=== PATIENT | female | born 1970 | race Hispanic/Latino ===

== ENCOUNTER 2016-11-13 10:38 | Emergency (ER) | payer OTHER ==
[2016-11-13 13:39] LABS: Basophils % (Auto) 0.3 % (0.0-1.8); Eosinophils % (Auto) 0.7 % (0.0-4.3); Hematocrit 36.7 % (35.5-45.6); Hemoglobin 12.4 gm/dl (11.8-15.2); Mean Corpuscular HGB Conc 34 % (32-34); Mean Corpuscular Hemoglobin 29 pg (28-32); Mean Corpuscular Volume 85 fl (84-94); Platelet Count 360 K/mm3 (140-440); Red Blood Count 4.33 M/mm3 (3.65-5.03); Red Cell Distribution Width 17.3 % (13.2-15.2); White Blood Count 7.5 K/mm3 (4.5-11.0)
[2016-11-13 13:44] LABS: Urine Drugs of Abuse Note Disclamer
[2016-11-13 13:47] LABS: Anion Gap 23 mmol/L; BUN/Creatinine Ratio 25.55; Blood Urea Nitrogen 23 mg/dL (9-20); Calcium 8.9 mg/dL (8.4-10.2); Carbon Dioxide 23 mmol/L (22-30); Chloride 93.2 mmol/L (98-107); Glucose 127 mg/dL (75-100); Potassium 4.1 mmol/L (3.6-5.0); Sodium 135 mmol/L (137-145)
[2016-11-13 14:20] LABS: Bacteria,Urine 3+ /HPF (Negative); Bilirubin,Urine NEG (Negative); Blood,Urine NEG (Negative); Ketones,Urine 20 mg/dL (Negative); Leukocyte Esterase,Urine LG (Negative); Mucus,Urine FEW /HPF; Nitrite,Urine NEG (Negative); Protein,Urine <15 mg/dL mg/dL (Negative); Urobilinogen,Urine < 2.0 mg/dL (<2.0)
--- NOTE | 2016-11-13 14:53 | Emergency Department Report ---
HPI - General Chief Complaint: Nausea/Vomiting/Diarrhea Time Seen by Provider: 11/13/16 14:27 - HPI HPI: This is a 46-year-old female presents to the emergency department with what she says is now some dizziness, feeling overheated and shakes. The patient was brought in many hours ago by [facility] but then became slightly belligerent to triage and said she was leaving and eloped. She recently came back with these current complaints saying that she just wants to get some rest. There was some talk about hallucinations occurring last night but currently she denies any auditory or visual hallucinations or any suicidal or homicidal ideations. She does have a history of depression and schizophrenia. She denies any current past medical history. She does admit to drinking some alcohol last night but denies alcoholism. She does admit to using some "street drugs" but says that she has not done it in the past 1-2 days. She be noted that later on on reassessment the patient says that a lot has been going on in her life on a personal level and it is causing her to be depressed and that she admits to suicidal ideations last night and even through this morning and afternoon. When asked if the patient is having current suicidal ideations, she says "I am not sure but I know that I need to see my psychiatrist soon." ED Past Medical Hx - Past Medical History Hx Heart Attack/AMI: Yes (pt stated) Hx Diabetes: Yes (gestational) Hx Seizures: Yes Hx Psychiatric Treatment: Yes (depression / schizophrenia) - Surgical History Hx Breast Surgery: Yes (breast augmentation) Additional Surgical History: left leg surgery. x 2 - Social History Smoking Status: Current Every Day Smoker Substance Use Type: Alcohol ED Review of Systems ROS: Stated complaint: HALLUCINATION/VOMITING Other details as noted in HPI Comment: All other systems reviewed and negative Constitutional: chills. denies: fever Eyes: denies: eye pain, eye discharge, vision change ENT: denies: ear pain, throat pain Respiratory: denies: cough, shortness of breath, wheezing Cardiovascular: denies: chest pain, palpitations Gastrointestinal: denies: abdominal pain, nausea, diarrhea Musculoskeletal: denies: back pain, joint swelling, arthralgia Skin: denies: rash, lesions Neurological: other (dizziness). denies: headache, weakness, paresthesias Physical Exam - Physical Exam Vital Signs: Vital Signs 11/13/16 11/13/16 10:53 13:07 Temperature 97.9 F 97.8 F Pulse Rate 104 H 109 H Respiratory 16 17 Rate Blood Pressure 112/77 Blood Pressure 122/74 [Left] O2 Sat by Pulse 99 100 Oximetry Physical Exam: GENERAL: The patient is well-developed well-nourished. HENT: Normocephalic. Atraumatic. Patient has moist mucous membranes. EYES: Extraocular motions are intact. Pupils equal reactive to light bilaterally. No nystagmus. NECK: Supple. Trachea is midline. CHEST/LUNGS: Clear to auscultation. There is no respiratory distress noted. HEART/CARDIOVASCULAR: Regular. There is no tachycardia. There is no gallop rub or murmur. ABDOMEN: Abdomen is soft, nontender. Patient has normal bowel sounds. There is no abdominal distention. SKIN: Skin is warm and dry. NEURO: The patient is awake, alert, and oriented. The patient is cooperative. The patient has no focal neurologic deficits. The patient has normal speech and gait. Cranial nerves II through XII grossly intact. MUSCULOSKELETAL: There is no tenderness or deformity. There is no limitation range of motion. There is no evidence of acute injury. ED Course Vital Signs 11/13/16 11/13/16 10:53 13:07 Temperature 97.9 F 97.8 F Pulse Rate 104 H 109 H Respiratory 16 17 Rate Blood Pressure 112/77 Blood Pressure 122/74 [Left] O2 Sat by Pulse 99 100 Oximetry ED Medical Decision Making - Lab Data Result diagrams: 11/13/16 13:15 11/13/16 13:15 - EKG Data -: EKG Interpreted by Oh EKG shows normal: sinus rhythm, axis, intervals, QRS complexes (q waves to the septal / anterior leads), ST-T waves Rate: tachycardia (108 bpm) - EKG Data When compared to previous EKG there are: previous EKG unavailable Interpretation: other (sinus tach, q waves to the septal / anterior leads) - Radiology Data Radiology results: report reviewed CT of the head does not show any acute intracranial process including no ischemia, shift, mass, bleeding or skull fracture. - Medical Decision Making 46-year-old female presents to the emergency department originally with some complaints of dehydration, feeling overheated, nonspecific dizziness. She was found to have some slight alcohol intoxication earlier that had resolved by the time it was rechecked this afternoon. Urine drug screen positive for methamphetamine. The rest the patient's labs are mostly unremarkable and do not show any etiology of her symptoms. She was given Zofran for nausea and vomiting, IV fluid resuscitation. Eventually patient says that she is feeling better and she is hungry and was able to eat something without having any further nausea or vomiting. However when I went to reassess the patient she began speaking of her depression and suicidal ideations. For this reason the patient was made a 1013. She still complained of some nonspecific dizziness so a CT scan of the head was done without contrast resulted as a negative examination without any signs of bleed, shift, ischemia or any other acute process. Vital signs stable throughout her ED course. At this point I consider the patient to be medically cleared for psychiatric placement. - Differential Diagnosis bipolar disorder, schizophrenia, depression, substance abuse, dehydration Critical Care Time: No Critical care attestation.: If time is entered above; I have spent that time in minutes in the direct care of this critically ill patient, excluding procedure time. ED Disposition Clinical Impression: Suicidal ideations Depression Qualifiers: Depression Type: unspecified Qualified Code(s): F32.9 - Major depressive disorder, single episode, unspecified Disposition: DC/TX-65 PSY HOSP/PSY UNIT Is pt being admited?: No Condition: Stable Referrals: PRIMARY CARE [Primary Care Provider] - 3-5 Days Time of Disposition: 19:38
[2016-11-13] MEDS ORDERED: ZOFRAN IV ONE (15:10)
[2016-11-13] MEDS ORDERED: NACL 0.9% 1000 ML 1,000 ML IV ONE ×2 (15:10→18:40)
[2016-11-13] MEDS ORDERED: ROCEPHIN/NS 1 GM/50 ML 1 GM/50 ML BAG IV ONE (15:34)
[2016-11-13] MEDS ORDERED: TORADOL IV ONE (18:39)
--- NOTE | 2016-11-13 19:18 | Cat Scan Report ---
FINAL REPORT EXAM: CT HEAD/BRAIN WO CON HISTORY: dizziness TECHNIQUE: CT head without contrast PRIORS: None. FINDINGS: No acute intra-axial or extra-axial hemorrhage is identified. There is no evidence of midline shift or mass effect. The ventricles and sulci are within normal limits. Malhotra-white matter differentiation is intact. No acute parenchymal abnormalities seen. Bony calvarium is grossly intact. Visualized portions of the mastoids and paranasal sinuses are unremarkable. IMPRESSION: Negative CT head
[2016-11-14] MEDS ORDERED: RisperDAL PO ONE (22:17)
[2016-11-14] MEDS ORDERED: VISTARIL PO ONE (22:17)
--- NOTE | 2016-11-15 16:18 | Consultation ---
History of Present Illness - Reason for Consult Consult date: 11/15/16 Reason for consult: psychiatric evaluation Medications and Allergies Allergies Allergy/AdvReac Type Severity Reaction Status Date / Time No Known Allergies Allergy Verified 11/13/16 13:01 Home Medications Medication Instructions Recorded Confirmed Last Taken Type hydrOXYzine PAMOATE [Vistaril] 100 mg PO BID 11/14/16 11/14/16 Unknown History risperiDONE [RisperDAL] 2 mg PO QHS 11/14/16 11/14/16 Unknown History Active Meds: Active Medications Risperidone (Risperdal) 2 mg PO [facility] Mental Status Exam - Vital signs Last Vital Signs Temp 98 F 11/15/16 15:11 Pulse 88 11/15/16 15:11 Resp 18 11/15/16 15:11 BP 134/70 11/15/16 15:11 Pulse Ox 98 11/15/16 15:11 Results Result Diagrams: 11/13/16 13:15 11/13/16 13:15 All other labs normal. Assessment and Plan Assessment and plan: "I need detox." The patient is a 46-year-old female presenting with a chief complaint of suicidal ideation with a hx of substance abuse. She has presented to [facility] more than once in the past 6 months for the same presentation. These records are found under a different medical record number. She admits to polysubstance use, including heroin, methamphetamine, xanax, and historically cocaine. She is tangential and irritable. She reports vomiting yesterday. Her primary complaints are sweating, mood swings, and tremors. She reports a history of seizures and states at the time she had a low sodium level. She reports suicidal ideation. No psychotic symptoms present. She wants to be on detox medication and schizophrenia medications. She states the schizophrenia medicines have never really worked. Nonetheless, she would like to restart them , risperdal and vistaril. She wants to be on tranxene and suboxone. Past psychiatric history - Past Medical History Past Medical History: No medical history, other (Elevated Ch) Past Surgical History: No surgical history - past Psychiatric treatment and history Psych: Bipolar, Depression - Social History Social history: staying in [place] and comes to [place] to see her boyfriend Mental Status Exam - Exam Narrative exam: MSE: Appearance: calm, uncooperative Behavior: good eye contact Speech: pressured, loud Mood: agitated Affect: congruent Thought Process: tangential Thought Content: she reports suicidal ideation. denies HI's and AVH's Motor Activity: ambulatory Cognition: A&O x 3 Insight: limited Judgment: poor Assessment and plan: Impression: Unspecified Mood DO/Stimulant Use DO. The patient is a 46-year-old female presenting with a chief complaint of suicidal ideation and wants detox for substance abuse. She is not exhibiting signs of benzo withdrawal. Her vital signs have been within normal limits. She has subjective complaints of withdrawal symptoms. She does not appear to be in physical distress. CIWA is not indicated at this time. DD: R/O Bipolar, Depressive DO Recommendation/Plan: Continue 1013 with placement to inpatient psy services. She wants to go to [facility]. She is on the [facility] board and has been informed she is not able to go to [facility]. She has been denied there due to past behavioral issues. Start risperdal 2mg hs for mood start vistaril 50mg tid for complaints of anxiety.
[2016-11-15] MEDS: VISTARIL PO SCH (21:55)
[2016-11-15] MEDS ORDERED: RisperDAL PO SCH (22:00)
[2016-11-16 07:49] VITALS: BP 120/78
[2016-11-16] MEDS: VISTARIL PO SCH ×2 (08:57→16:02)
--- NOTE | 2016-11-16 17:19 | Progress Note ---
Subjective - Reason for Consult Consult date: 11/16/16 Reason for consult: follow up Mental Status Exam - Vital signs Last Vital Signs Temp 98.3 F 11/16/16 07:48 Pulse 85 11/16/16 07:48 Resp 16 11/16/16 07:49 BP 120/78 11/16/16 07:48 Pulse Ox 96 11/16/16 07:49 Assessment and Plan "I need detox." The patient is a 46-year-old female initial presented with a chief complaint of suicidal ideation and requesting detox from xanax and heroin. She has presented to [facility] more than once in the past 6 months for the same presentation. These records are found under a different medical record number. She admits to polysubstance use, including heroin, methamphetamine, xanax, and historically cocaine. Today, she is perseverative about being discharged since she cannot go to [facility]. She denies SI/HI/AVH. She states she wants rehab. She has not required detox from benzos/alcohol/opiates. She is not in acute distress. No physical complaints voiced. Mental Status Exam - Exam Narrative exam: MSE: Appearance: calm, uncooperative Behavior: good eye contact she is perseverative about discharge/demanding at times. Speech: regular rate and rhythm Mood: irritable Affect: congruent Thought Process: logical/perseverative Thought Content: denies SI/HI's and AVH's Motor Activity: ambulatory Cognition: A&O x 3 Insight: limited Judgment: limited Assessment and plan: Impression: Unspecified Mood DO/Stimulant Use DO. The patient is a 46-year-old female presenting with a chief complaint of suicidal ideation and wants detox for substance abuse. She is not exhibiting signs of benzo withdrawal. Her vital signs have been within normal limits. DD: R/O Bipolar, Depressive DO Recommendation/Plan: continue risperdal 2mg hs for mood Continue vistaril 50mg tid for complaints of anxiety. At the time of interview, Ms. Moeller does not present as an imminent risk of harm to herself or others. She has goal oriented thinking and plans to follow up at the [facility] for therapy and medication management. She currently does not meet inpatient criteria. She would be appropriate for [facility] or [facility] services. Initial reports of suicidality have not been consistent. Her goal to receive treatment for polysubstance use, particularly withdrawal. She is not exhibiting signs of withdrawal. She current denies SI/HI. Initial reports are consistent with attempts to gain access to inpatient services for alternate services/ substance use services/rehab placement. She had the same presentation 4 times since 04/2016. Consequently, she is no longer a danger to her self and she has consistently verbalized thoughts about her future. She plans on going to the [facility] tomorrow. She understands that cocaine, meth, xanax, heroin, and cannabis have a deleterious effect on her mental health and she is in the pre- contemplative stages of quitting. The 1013 has been rescinded and she can discharge back in the community with outpatient resources.
== END 2016-11-16 18:15 ==
LOC: EDSEX → EEVIPCON 10:38 → ED 10:38
DX: F32.9 Major depressive disorder, single episode, unspecified (principal); R45.851 Suicidal ideations; I25.2 Old myocardial infarction; F20.9 Schizophrenia, unspecified; F17.200 Nicotine dependence, unspecified, uncomplicated
CPT/HCPCS: 36415; 70450; 80048; 80307; 81001; 82550; 84443; 84484; 85025; 93005; 93010; 96361; 96365; 96375; 99285; G0480; J0696; J1885; J2405; J7030; 80320; Q0177

== ENCOUNTER 2016-12-31 05:03 | Emergency (ER) | payer SELFPAY ==
[2016-12-31 06:57] VITALS: BP 119/78
[2016-12-31 07:28] LABS: Urine Drugs of Abuse Note Disclamer
[2016-12-31 07:49] LABS: Bilirubin,Urine NEG (Negative); Blood,Urine SM (Negative); Ketones,Urine 20 mg/dL (Negative); Leukocyte Esterase,Urine LG (Negative); Nitrite,Urine NEG (Negative); Protein,Urine <15 mg/dL mg/dL (Negative); Urobilinogen,Urine < 2.0 mg/dL (<2.0); WBC,Urine < 1.0 /HPF (0.0-6.0)
[2016-12-31 07:58] LABS: Basophils % (Auto) 0.5 % (0.0-1.8); Eosinophils % (Auto) 2.6 % (0.0-4.3); Hematocrit 40.1 % (30.3-42.9); Hemoglobin 13.7 gm/dl (10.1-14.3); Mean Corpuscular HGB Conc 34 % (30-34); Mean Corpuscular Hemoglobin 29 pg (28-32); Mean Corpuscular Volume 86 fl (79-97); Platelet Count 322 K/mm3 (140-440); Red Blood Count 4.69 M/mm3 (3.65-5.03); Red Cell Distribution Width 15.6 % (13.2-15.2); White Blood Count 7.6 K/mm3 (4.5-11.0)
[2016-12-31 08:05] LABS: Anion Gap 23 mmol/L; BUN/Creatinine Ratio 22; Blood Urea Nitrogen 11 mg/dL (7-17); Calcium 9.3 mg/dL (8.4-10.2); Carbon Dioxide 24 mmol/L (22-30); Chloride 93.9 mmol/L (98-107); Glucose 71 mg/dL (65-100); Potassium 4.4 mmol/L (3.6-5.0); Sodium 136 mmol/L (137-145)
== END 2016-12-31 07:20 | disposition left against medical advice (07) ==
LOC: ED 05:03
DX: R45.851 Suicidal ideations (principal); Z53.21 Procedure and treatment not carried out due to patient leaving prior to being seen by health care provider; Z79.899 Other long term (current) drug therapy
CPT/HCPCS: 36415; 80048; 80307; 81001; 85025; G0480; 80320

== ENCOUNTER 2017-04-19 04:33 | Emergency (ER) | payer SELFPAY ==
[2017-04-19 05:59] VITALS: BP 169/68
--- NOTE | 2017-04-19 07:51 | Emergency Department Report ---
ED ENT HPI - General Chief complaint: Earache Stated complaint: FEVER,LEFT EAR PAIN Time Seen by Provider: 04/19/17 07:14 Source: patient Mode of arrival: Ambulatory Limitations: No Limitations - History of Present Illness Initial comments: This is a 47-year-old female nontoxic, well nourished in appearance, no acute signs of distress presents to the ED with c/o of left earache x2 days. Patient is also complaining about chronic intermittent left knee pain status post knee surgery 2 years ago. Patient denies any trauma to the knee. Patient stated pain is aching with level of 8 out of 10. Patient denies decreased hearing, mastoid tenderness, fever, chills, nausea, vomiting, chest pain, shortness of breath, headache or stiff neck. Patient denies any calf pain or calf tenderness. Denies any recent travels, long car rides, or recent hospital stays. Patient denies any numbness or tingling. Denies any abdominal pain or back pain. Patient denies any drug allergies. Past medical history includes diabetes, [place], psychiatric. MD complaint: ear pain -: days(s) (2) Location: L ear Severity: mild Severity scale (0 -10): 8 Quality: aching Consistency: constant Improves with: none Worsens with: none Associated Symptoms: denies: fever, cough, gum swelling, toothache, pain with swallowing, sore throat, tinnitus, hearing loss, discharge from ear, rhinorrhea - Related Data Home Medications Medication Instructions Recorded Confirmed Last Taken hydrOXYzine PAMOATE [Vistaril] 100 mg PO BID 11/14/16 11/14/16 Unknown risperiDONE [RisperDAL] 2 mg PO QHS 11/14/16 11/14/16 Unknown Previous Rx's Medication Instructions Recorded Last Taken Type Sulfamethoxazole/Trimethoprim 1 each PO BID #14 tablet 11/16/16 Unknown Rx [Bactrim DS TAB] Amoxicillin/K Clav Tab [Augmentin 1 tab PO Q12HR #20 tab 04/19/17 Unknown Rx 875 mg] Ciprofloxacin 0.2%(Nf) 4 drops TID 7 Days droperette 04/19/17 Unknown Rx [Ciprofloxacin Otic 0.2%(Nf)] Allergies Allergy/AdvReac Type Severity Reaction Status Date / Time No Known Allergies Allergy Verified 11/13/16 13:01 ED Dental HPI - General Chief complaint: Earache Stated complaint: FEVER,LEFT EAR PAIN Time Seen by Provider: 04/19/17 07:14 Source: patient Mode of arrival: Ambulatory Limitations: No Limitations - Related Data Home Medications Medication Instructions Recorded Confirmed Last Taken hydrOXYzine PAMOATE [Vistaril] 100 mg PO BID 11/14/16 11/14/16 Unknown risperiDONE [RisperDAL] 2 mg PO QHS 11/14/16 11/14/16 Unknown Previous Rx's Medication Instructions Recorded Last Taken Type Sulfamethoxazole/Trimethoprim 1 each PO BID #14 tablet 11/16/16 Unknown Rx [Bactrim DS TAB] Amoxicillin/K Clav Tab [Augmentin 1 tab PO Q12HR #20 tab 04/19/17 Unknown Rx 875 mg] Ciprofloxacin 0.2%(Nf) 4 drops TID 7 Days droperette 04/19/17 Unknown Rx [Ciprofloxacin Otic 0.2%(Nf)] Allergies Allergy/AdvReac Type Severity Reaction Status Date / Time No Known Allergies Allergy Verified 11/13/16 13:01 ED Review of Systems ROS: Stated complaint: FEVER,LEFT EAR PAIN Other details as noted in HPI Constitutional: denies: chills, fever Eyes: denies: eye pain, eye discharge, vision change ENT: ear pain. denies: throat pain Respiratory: denies: cough, shortness of breath, wheezing Cardiovascular: denies: chest pain, palpitations Endocrine: no symptoms reported Gastrointestinal: denies: abdominal pain, nausea, diarrhea Genitourinary: denies: urgency, dysuria, discharge Musculoskeletal: arthralgia. denies: back pain, joint swelling Skin: denies: rash, lesions Neurological: denies: headache, weakness, paresthesias Psychiatric: denies: anxiety, depression Hematological/Lymphatic: denies: easy bleeding, easy bruising ED Past Medical Hx - Past Medical History Hx Heart Attack/AMI: Yes (pt stated) Hx Diabetes: Yes (gestational) Hx Seizures: Yes Hx Psychiatric Treatment: Yes (depression / schizophrenia) Additional medical history: High cholesterol - Surgical History Hx Breast Surgery: Yes (breast augmentation) Additional Surgical History: left leg surgery. x 2 - Social History Smoking Status: Current Every Day Smoker Substance Use Type: None - Medications Home Medications: Home Medications Medication Instructions Recorded Confirmed Last Taken Type hydrOXYzine PAMOATE [Vistaril] 100 mg PO BID 11/14/16 11/14/16 Unknown History risperiDONE [RisperDAL] 2 mg PO QHS 11/14/16 11/14/16 Unknown History Sulfamethoxazole/Trimethoprim 1 each PO BID #14 tablet 11/16/16 Unknown Rx [Bactrim DS TAB] Amoxicillin/K Clav Tab [Augmentin 1 tab PO Q12HR #20 tab 04/19/17 Unknown Rx 875 mg] Ciprofloxacin 0.2%(Nf) 4 drops TID 7 Days droperette 04/19/17 Unknown Rx [Ciprofloxacin Otic 0.2%(Nf)] ED Physical Exam - General Limitations: No Limitations General appearance: alert, in no apparent distress - Head Head exam: Present: atraumatic, normocephalic, normal inspection - Eye Eye exam: Present: normal appearance, PERRL, EOMI. Absent: scleral icterus, conjunctival injection, nystagmus, periorbital swelling, periorbital tenderness Pupils: Present: normal accommodation - ENT ENT exam: Present: normal orophraynx, mucous membranes moist - Expanded ENT Exam Expanded Ear exam: Present: normal external inspection TM/Canal exam: Erythema: Left TM, Bulging: Left TM (with tragus pain) Mouth exam: Present: normal external inspection, tongue normal. Absent: drooling, trismus, muffled voice, tongue elevation, laceration Teeth exam: Present: normal inspection Throat exam: Positive: normal inspection. Negative: tonsillar erythema, tonsillomegaly, tonsillar exudate, R peritonsillar mass, L peritonsillar mass - Neck Neck exam: Present: normal inspection, full ROM. Absent: tenderness, meningismus, lymphadenopathy, thyromegaly - Respiratory Respiratory exam: Present: normal lung sounds bilaterally. Absent: respiratory distress, wheezes, rales, rhonchi, stridor, chest wall tenderness, accessory muscle use, decreased breath sounds, prolonged expiratory - Cardiovascular Cardiovascular Exam: Present: regular rate, normal rhythm, normal heart sounds. Absent: irregular rhythm, systolic murmur, diastolic murmur, rubs, gallop - GI/Abdominal GI/Abdominal exam: Present: soft, normal bowel sounds. Absent: distended, tenderness, guarding, rebound, rigid, diminished bowel sounds - Rectal Rectal exam: Present: deferred - Extremities Exam Extremities exam: Present: normal inspection, full ROM, tenderness, normal capillary refill. Absent: pedal edema, joint swelling, calf tenderness - Expanded Lower Extremity Exam Left Hip exam: Present: normal inspection, full ROM Upper Leg exam: Present: normal inspection, full ROM Knee exam: Present: normal inspection, full ROM, tenderness, full knee extension. Absent: swelling, abrasion, laceration, ecchymosis, deformity, crepidus, dislocation, erythema, effusion, pain w/ pronation/supination, posterior draw sign, pain/laxity with valgus, pain/laxity with varus Lower Leg exam: Present: normal inspection, full ROM. Absent: tenderness, swelling, abrasion, laceration, ecchymosis, deformity, crepidus, dislocation, erythema, palpable cord, Adriana's sign Ankle exam: Present: normal inspection, full ROM. Absent: tenderness, swelling , abrasion, laceration, ecchymosis, deformity, crepidus, dislocation, erythema, anterior draw sign Foot/Toe exam: Present: normal inspection, full ROM Neuro vascular tendon exam: Present: no vascular compromise. Absent: pulse deficit, abnormal cap refill, motor deficit, sensory deficit, tendon deficit, extremity cold to touch, pallor, abnormal 2-point discrimination, decreased fine /light touch, foot drop, peroneal nerve deficit, significant pain with passive ROM of distal joint Gait: Positive: observed and normal - Back Exam Back exam: Present: normal inspection, full ROM. Absent: tenderness, CVA tenderness (R), CVA tenderness (L), muscle spasm, paraspinal tenderness, vertebral tenderness, rash noted - Neurological Exam Neurological exam: Present: alert, oriented X3, CN II-XII intact, normal gait, reflexes normal - Psychiatric Psychiatric exam: Present: normal affect, normal mood - Skin Skin exam: Present: warm, dry, intact, normal color. Absent: rash ED Course Vital Signs 04/19/17 04/19/17 05:55 06:07 Temperature 98.1 F 98.1 F Pulse Rate 111 H 81 Respiratory 18 18 Rate Blood Pressure 169/68 169/68 O2 Sat by Pulse 97 99 Oximetry - Reevaluation(s) Reevaluation #1: 04/19/17 07:57 Patient is speaking in full sentences with no signs of distress noted. ED Medical Decision Making - Medical Decision Making This is a 47-year-old female that presents with chronic intermittent left knee pain, left otitis media and otitis externa. Patient was stable and was examined by me. The patient received Motrin 800 milligrams by mouth in the ED which patient stated his symptoms of knee pain is improving and is subsiding. Patient is discharged with Augmentin and ciprofloxacin otic. There is no mastoid tenderness. No mastoid erythema. Negative calf tenderness or calf pain. Patient was instructed Follow-up with a ENT/orthopedic doctor in 24 hours or if symptoms worsen and continue return to emergency room as soon as possible. At time time of discharge, the patient does not seem toxic or ill in appearance. No acute signs of distress noted. Patient agrees to discharge treatment plan of care. No further questions noted by the patient. Critical care attestation.: If time is entered above; I have spent that time in minutes in the direct care of this critically ill patient, excluding procedure time. ED Disposition Clinical Impression: Otitis media Qualifiers: Otitis media type: unspecified Laterality: left Qualified Code(s): H66.92 - Otitis media, unspecified, left ear Otitis externa Qualifiers: Otitis externa type: unspecified type Chronicity: acute Laterality: left Qualified Code(s): H60.502 - Unspecified acute noninfective otitis externa, left ear Left knee pain Qualifiers: Chronicity: chronic Qualified Code(s): M25.562 - Pain in left knee; G89.29 - Other chronic pain; G89.29 - Other chronic pain Disposition: DC-01 TO HOME OR SELFCARE Is pt being admited?: No Does the pt Need Aspirin: No Condition: Stable Instructions: Earache (ED), Knee Pain (ED), Ibuprofen (By mouth), Amoxicillin/ Clavulanate Potassium (By mouth), Ciprofloxacin (Into the ear) Additional Instructions: Follow-up with a ENT/orthopedic doctor in 24 hours or if symptoms worsen and continue return to emergency room as soon as possible. At time time of discharge, the patient does not seem toxic or ill in appearance. Prescriptions: Amoxicillin/K Clav Tab [Augmentin 875 mg] 1 tab PO Q12HR #20 tab Ciprofloxacin 0.2%(Nf) [Ciprofloxacin Otic 0.2%(Nf)] 4 drops TID 7 Days droperette Referrals: PRIMARY CARE, [Primary Care Provider] - 24 Hours [facility] [Outside] - 3-[address] [facility] [Outside] - 3-5 Days RJ CAR MD [Staff Physician] - 24 Hours JUSTIN DENNY MD [Staff Physician] - 24 Hours Forms: Work/School Release Form(ED)
[2017-04-19] MEDS ORDERED: MOTRIN PO ONE (07:56)
== END 2017-04-19 08:25 | disposition home or self-care (01) ==
LOC: ED 04:33
DX: H66.92 Otitis media, unspecified, left ear (principal); H60.502 Unspecified acute noninfective otitis externa, left ear; M25.562 Pain in left knee; G89.29 Other chronic pain; E78.00 Pure hypercholesterolemia, unspecified; F20.9 Schizophrenia, unspecified; F32.9 Major depressive disorder, single episode, unspecified; F17.200 Nicotine dependence, unspecified, uncomplicated; Z98.890 Other specified postprocedural states
CPT/HCPCS: 99282

== ENCOUNTER 2017-05-22 03:42 | Emergency (ER) | payer SELFPAY ==
[2017-05-22 05:14] VITALS: BP 147/78
[2017-05-22 05:53] LABS: Basophils % (Auto) 0.1 % (0.0-1.8); Eosinophils % (Auto) 0.1 % (0.0-4.3); Hematocrit 33.7 % (30.3-42.9); Hemoglobin 11.1 gm/dl (10.1-14.3); Lymphocytes # (Auto) 0.3 K/mm3 (1.2-5.4); Mean Corpuscular HGB Conc 33 % (30-34); Mean Corpuscular Hemoglobin 29 pg (28-32); Mean Corpuscular Volume 89 fl (79-97); Monocytes # (Auto) 1.2 K/mm3 (0.0-0.8); Monocytes % (Auto) 10.6 % (0.0-7.3); Platelet Count 291 K/mm3 (140-440); Red Cell Distribution Width 14.5 % (13.2-15.2)
[2017-05-22 06:44] LABS: BUN/Creatinine Ratio 37; Blood Urea Nitrogen 22 mg/dL (7-17); Calcium 9.1 mg/dL (8.4-10.2); Hemolysis Index 12
== END 2017-05-22 11:50 | disposition left against medical advice (07) ==
LOC: ED 03:42
DX: R45.851 Suicidal ideations (principal); Z53.21 Procedure and treatment not carried out due to patient leaving prior to being seen by health care provider; Z79.899 Other long term (current) drug therapy
CPT/HCPCS: 36415; 80048; 85025; G0480; 80320

== ENCOUNTER 2017-06-02 22:58 | Emergency (ER) | payer SELFPAY ==
[2017-06-02 23:50] LABS: Basophils % (Auto) 0.5 % (0.0-1.8); Eosinophils # (Auto) 0.1 K/mm3 (0.0-0.4); Eosinophils % (Auto) 0.9 % (0.0-4.3); Hematocrit 33.5 % (30.3-42.9); Hemoglobin 10.9 gm/dl (10.1-14.3); Lymphocytes # (Auto) 1.1 K/mm3 (1.2-5.4); Lymphocytes % (Auto) 17.2 % (13.4-35.0); Mean Corpuscular HGB Conc 33 % (30-34); Mean Corpuscular Hemoglobin 29 pg (28-32); Mean Corpuscular Volume 88 fl (79-97); Monocytes # (Auto) 0.5 K/mm3 (0.0-0.8); Monocytes % (Auto) 7.7 % (0.0-7.3); Platelet Count 470 K/mm3 (140-440); Red Blood Count 3.79 M/mm3 (3.65-5.03); Red Cell Distribution Width 14.5 % (13.2-15.2)
--- NOTE | 2017-06-03 00:05 | Emergency Department Report ---
History of Present Illness - General Chief Complaint: Overdose Stated Complaint: POSS OD Time Seen by Provider: 06/02/17 23:39 Source: patient, EMS Mode of arrival: Stretcher Limitations: No Limitations - History of Present Illness Initial Comments: 47-year-old female with a asthma previously schizophrenia, depression, seizures , and elevated cholesterol and a questionable cardiac history presents to the hospital with suicidal ideation with attempt prior to arrival. Patient called EMS temperature at 22:30. Warned that if she took a handful of unknown pills at 21:30. Patient thinks the tablets were Risperdal but they were not her pills. Patient initially belligerent and accusing me of not wanting to treat her and that I can be trialed for murder if she dies. Also stated she wants to go to another hospital. This response was in response to questioning about her history of present illness and current symptoms. Patient does not want to discuss why she is suicidal states she was psychiatrist about that. She complains of mid chest pain that started after she received blood draw via needle. - Related Data Home Medications Medication Instructions Recorded Confirmed Last Taken hydrOXYzine PAMOATE [Vistaril] 100 mg PO BID 11/14/16 11/14/16 Unknown risperiDONE [RisperDAL] 2 mg PO QHS 11/14/16 11/14/16 Unknown Previous Rx's Medication Instructions Recorded Last Taken Type Sulfamethoxazole/Trimethoprim 1 each PO BID #14 tablet 11/16/16 Unknown Rx [Bactrim DS TAB] Amoxicillin/K Clav Tab [Augmentin 1 tab PO Q12HR #20 tab 04/19/17 Unknown Rx 875 mg] Ciprofloxacin 0.2%(Nf) 4 drops TID 7 Days droperette 04/19/17 Unknown Rx [Ciprofloxacin Otic 0.2%(Nf)] Allergies Allergy/AdvReac Type Severity Reaction Status Date / Time No Known Allergies Allergy Verified 11/13/16 13:01 ED Review of Systems ROS: Stated complaint: POSS OD Other details as noted in HPI Comment: All other systems reviewed and negative Other: Constitutional: No fevers chills Eyes: No eye pain visual changes ENT: No ear pain or throat pain Neck: Denies pain Respiratory: Denies cough wheezing shortness of breath Cardiovascular: Denies palpitations, syncope GI: Denies abdominal pain, nausea, vomiting, diarrhea : Denies dysuria Musculoskeletal: Denies back pain Skin: Denies rash, lesions, erythema Neurologic: Denies headache, numbness, weakness Psychiatric: Denies suicidal ideation, hallucinations ED Past Medical Hx - Past Medical History Hx Heart Attack/AMI: Yes (pt stated) Hx Diabetes: Yes (gestational) Hx Seizures: Yes Hx Psychiatric Treatment: Yes (depression / schizophrenia) Additional medical history: High cholesterol - Surgical History Hx Coronary Stent: Yes (patient states) Hx Breast Surgery: Yes (breast augmentation) Additional Surgical History: left leg surgery. x 2 - Social History Smoking Status: Current Every Day Smoker - Medications Home Medications: Home Medications Medication Instructions Recorded Confirmed Last Taken Type hydrOXYzine PAMOATE [Vistaril] 100 mg PO BID 11/14/16 11/14/16 Unknown History risperiDONE [RisperDAL] 2 mg PO QHS 11/14/16 11/14/16 Unknown History Sulfamethoxazole/Trimethoprim 1 each PO BID #14 tablet 11/16/16 Unknown Rx [Bactrim DS TAB] Amoxicillin/K Clav Tab [Augmentin 1 tab PO Q12HR #20 tab 04/19/17 Unknown Rx 875 mg] Ciprofloxacin 0.2%(Nf) 4 drops TID 7 Days droperette 04/19/17 Unknown Rx [Ciprofloxacin Otic 0.2%(Nf)] ED Physical Exam - General Limitations: No Limitations - Other Other exam information: General: No limitations, patient is alert in no acute distress Head exam: Atraumatic, normocephalic Eyes exam: Normal appearance ENT: Moist mucous membrane, normal oropharynx Neck exam: Normal inspection, full range of motion, no meningismus nontender Respiratory exam: Clear to auscultation bilateral, no wheezes, rales, crackles Cardiovascular: Normal rate and rhythm, normal heart sounds. Chest wall nontender Abdomen: Soft, nondistended, and nontender, with normal bowel sounds, no rebound, or guarding Extremity: Full range of motion normal inspection no deformity, no calf tenderness or edema Back: Normal Inspection, full range of motion, no tenderness Neurologic: Alert, oriented x3, cranial nerves intact, no motor or sensory deficit Psychiatric: Depressed affect, agitated Skin: Warm, dry, intact ED Course Vital Signs 06/02/17 06/02/17 06/02/17 23:04 23:14 23:16 Temperature 98 F Pulse Rate 101 H 100 H 98 H Respiratory 19 18 18 Rate Blood Pressure 120/51 120/51 O2 Sat by Pulse 98 92 Oximetry 06/02/17 06/02/17 06/03/17 23:30 23:46 00:00 Temperature Pulse Rate 96 H 96 H 102 H Respiratory 20 21 27 H Rate Blood Pressure 120/51 126/58 121/60 O2 Sat by Pulse 98 97 100 Oximetry 06/03/17 06/03/17 06/03/17 00:16 00:30 00:45 Temperature Pulse Rate 95 H 96 H 98 H Respiratory 24 22 19 Rate Blood Pressure 121/60 115/52 115/52 O2 Sat by Pulse 98 100 100 Oximetry 06/03/17 06/03/17 06/03/17 01:00 01:15 01:30 Temperature Pulse Rate 98 H 100 H 98 H Respiratory 22 16 13 Rate Blood Pressure 120/53 120/53 126/70 O2 Sat by Pulse Oximetry - Reevaluation(s) Reevaluation #1: 06/03/17 05:58 Patient has been in the ER for over 6 hours without any symptoms of acute intoxication. - Consultations Consultation #1: 06/03/17 02:22 evaluation requested. Spoke with [facility] Medical Decision Making - Lab Data Result diagrams: 06/02/17 23:16 06/02/17 23:16 Lab Results 06/02/17 06/02/17 06/02/17 Range/Units 00:00 23:16 23:16 WBC (4.5-11.0) K/mm3 RBC (3.65-5.03) M/mm3 Hgb (10.1-14.3) gm/dl Hct (30.3-42.9) % MCV (79-97) fl MCH (28-32) pg MCHC (30-34) % RDW (13.2-15.2) % Plt Count (140-440) K/mm3 Lymph % (Auto) (13.4-35.0) % [place] % (Auto) (0.0-7.3) % Eos % (Auto) (0.0-4.3) % Baso % (Auto) (0.0-1.8) % Lymph # (1.2-5.4) K/mm3 [place] # (0.0-0.8) K/mm3 Eos # (0.0-0.4) K/mm3 Baso # (0.0-0.1) K/mm3 Seg Neutrophils % (40.0-70.0) % Seg Neutrophils # (1.8-7.7) K/mm3 Sodium (137-145) mmol/L Potassium (3.6-5.0) mmol/L Chloride (98-107) mmol/L Carbon Dioxide (22-30) mmol/L Anion Gap mmol/L BUN (7-17) mg/dL Creatinine (0.7-1.2) mg/dL Estimated GFR ml/min BUN/Creatinine Ratio % Glucose (65-100) mg/dL Calcium (8.4-10.2) mg/dL Phosphorus (2.5-4.5) mg/dL Magnesium (1.7-2.3) mg/dL Total Bilirubin 0.20 (0.1-1.2) mg/dL Direct Bilirubin < 0.2 (0-0.2) mg/dL Indirect Bilirubin 0.0 mg/dL AST 15 (5-40) units/L ALT 9 (7-56) units/L Alkaline Phosphatase 85 (35-129) units/L Total Creatine Kinase (30-135) units/L CK-MB (CK-2) (0.0-4.0) ng/mL CK-MB (CK-2) Rel Index (0-4) Troponin T (0.00-0.029) ng/mL Total Protein 7.1 (6.3-8.2) g/dL Albumin 3.8 L (3.9-5) g/dL Albumin/Globulin Ratio 1.2 % HCG, Qual (Negative) Urine Color (Yellow) Urine Turbidity (Clear) Urine pH (5.0-7.0) Ur Specific Fraser (1.003-1.030) Urine Protein (Negative) mg/dL Urine Glucose (UA) (Negative) mg/dL Urine Ketones (Negative) mg/dL Urine Blood (Negative) Urine Nitrite (Negative) Urine Bilirubin (Negative) Urine Urobilinogen (<2.0) mg/dL Ur Leukocyte Esterase (Negative) Urine WBC (Auto) (0.0-6.0) /HPF Urine RBC (Auto) (0.0-6.0) /HPF U Epithel Cells (Auto) (0-13.0) /HPF Urine Bacteria (Auto) (Negative) /HPF Amorphous Crystals Salicylates < 0.3 L (2.8-20.0) mg/dL Urine Opiates Screen Urine Methadone Screen Acetaminophen < 5.0 L (10.0-30.0) ug/mL Ur Barbiturates Screen Ur Phencyclidine Scrn Ur Amphetamines Screen U Benzodiazepines Scrn Urine Cocaine Screen U Marijuana (THC) Screen Drugs of Abuse Note Plasma/Serum Alcohol (0-0.07) % 06/02/17 06/02/17 06/02/17 Range/Units 23:16 23:16 23:16 WBC (4.5-11.0) K/mm3 RBC (3.65-5.03) M/mm3 Hgb (10.1-14.3) gm/dl Hct (30.3-42.9) % MCV (79-97) fl MCH (28-32) pg MCHC (30-34) % RDW (13.2-15.2) % Plt Count (140-440) K/mm3 Lymph % (Auto) (13.4-35.0) % [place] % (Auto) (0.0-7.3) % Eos % (Auto) (0.0-4.3) % Baso % (Auto) (0.0-1.8) % Lymph # (1.2-5.4) K/mm3 [place] # (0.0-0.8) K/mm3 Eos # (0.0-0.4) K/mm3 Baso # (0.0-0.1) K/mm3 Seg Neutrophils % (40.0-70.0) % Seg Neutrophils # (1.8-7.7) K/mm3 Sodium 138 (137-145) mmol/L Potassium 4.1 (3.6-5.0) mmol/L Chloride 97.9 L (98-107) mmol/L Carbon Dioxide 28 (22-30) mmol/L Anion Gap 16 mmol/L BUN 10 (7-17) mg/dL Creatinine 0.6 L (0.7-1.2) mg/dL Estimated GFR > 60 ml/min BUN/Creatinine Ratio 17 % Glucose 89 (65-100) mg/dL Calcium 8.5 (8.4-10.2) mg/dL Phosphorus (2.5-4.5) mg/dL Magnesium (1.7-2.3) mg/dL Total Bilirubin (0.1-1.2) mg/dL Direct Bilirubin (0-0.2) mg/dL Indirect Bilirubin mg/dL AST (5-40) units/L ALT (7-56) units/L Alkaline Phosphatase (35-129) units/L Total Creatine Kinase (30-135) units/L CK-MB (CK-2) (0.0-4.0) ng/mL CK-MB (CK-2) Rel Index (0-4) Troponin T (0.00-0.029) ng/mL Total Protein (6.3-8.2) g/dL Albumin (3.9-5) g/dL Albumin/Globulin Ratio % HCG, Qual Negative (Negative) Urine Color (Yellow) Urine Turbidity (Clear) Urine pH (5.0-7.0) Ur Specific Fraser (1.003-1.030) Urine Protein (Negative) mg/dL Urine Glucose (UA) (Negative) mg/dL Urine Ketones (Negative) mg/dL Urine Blood (Negative) Urine Nitrite (Negative) Urine Bilirubin (Negative) Urine Urobilinogen (<2.0) mg/dL Ur Leukocyte Esterase (Negative) Urine WBC (Auto) (0.0-6.0) /HPF Urine RBC (Auto) (0.0-6.0) /HPF U Epithel Cells (Auto) (0-13.0) /HPF Urine Bacteria (Auto) (Negative) /HPF Amorphous Crystals Salicylates (2.8-20.0) mg/dL Urine Opiates Screen Urine Methadone Screen Acetaminophen (10.0-30.0) ug/mL Ur Barbiturates Screen Ur Phencyclidine Scrn Ur Amphetamines Screen U Benzodiazepines Scrn Urine Cocaine Screen U Marijuana (THC) Screen Drugs of Abuse Note Plasma/Serum Alcohol 0.02 (0-0.07) % 06/02/17 06/02/17 06/02/17 Range/Units 23:16 23:48 23:48 WBC 6.3 (4.5-11.0) K/mm3 RBC 3.79 (3.65-5.03) M/mm3 Hgb 10.9 (10.1-14.3) gm/dl Hct 33.5 (30.3-42.9) % MCV 88 (79-97) fl MCH 29 (28-32) pg MCHC 33 (30-34) % RDW 14.5 (13.2-15.2) % Plt Count 470 H (140-440) K/mm3 Lymph % (Auto) 17.2 (13.4-35.0) % [place] % (Auto) 7.7 H (0.0-7.3) % Eos % (Auto) 0.9 (0.0-4.3) % Baso % (Auto) 0.5 (0.0-1.8) % Lymph # 1.1 L (1.2-5.4) K/mm3 [place] # 0.5 (0.0-0.8) K/mm3 Eos # 0.1 (0.0-0.4) K/mm3 Baso # 0.0 (0.0-0.1) K/mm3 Seg Neutrophils % 73.7 H (40.0-70.0) % Seg Neutrophils # 4.6 (1.8-7.7) K/mm3 Sodium (137-145) mmol/L Potassium (3.6-5.0) mmol/L Chloride (98-107) mmol/L Carbon Dioxide (22-30) mmol/L Anion Gap mmol/L BUN (7-17) mg/dL Creatinine (0.7-1.2) mg/dL Estimated GFR ml/min BUN/Creatinine Ratio % Glucose (65-100) mg/dL Calcium (8.4-10.2) mg/dL Phosphorus (2.5-4.5) mg/dL Magnesium (1.7-2.3) mg/dL Total Bilirubin (0.1-1.2) mg/dL Direct Bilirubin (0-0.2) mg/dL Indirect Bilirubin mg/dL AST (5-40) units/L ALT (7-56) units/L Alkaline Phosphatase (35-129) units/L Total Creatine Kinase (30-135) units/L CK-MB (CK-2) (0.0-4.0) ng/mL CK-MB (CK-2) Rel Index (0-4) Troponin T (0.00-0.029) ng/mL Total Protein (6.3-8.2) g/dL Albumin (3.9-5) g/dL Albumin/Globulin Ratio % HCG, Qual (Negative) Urine Color Yellow (Yellow) Urine Turbidity Turbid (Clear) Urine pH 5.0 (5.0-7.0) Ur Specific [place] 1.026 (1.003-1.030) Urine Protein <15 mg/dl (Negative) mg/dL Urine Glucose (UA) Neg (Negative) mg/dL Urine Ketones Neg (Negative) mg/dL Urine Blood Mod (Negative) Urine Nitrite Neg (Negative) Urine Bilirubin Neg (Negative) Urine Urobilinogen 2.0 (<2.0) mg/dL Ur Leukocyte Esterase Tr (Negative) Urine WBC (Auto) < 1.0 (0.0-6.0) /HPF Urine RBC (Auto) 25.0 (0.0-6.0) /HPF U Epithel Cells (Auto) 7.0 (0-13.0) /HPF Urine Bacteria (Auto) 2+ (Negative) /HPF Amorphous Crystals 3+ Salicylates (2.8-20.0) mg/dL Urine Opiates Screen Presumptive negative Urine Methadone Screen Presumptive negative Acetaminophen (10.0-30.0) ug/mL Ur Barbiturates Screen Presumptive negative Ur Phencyclidine Scrn Presumptive negative Ur Amphetamines Screen Presumptive positive U Benzodiazepines Scrn Presumptive negative Urine Cocaine Screen Presumptive negative U Marijuana (THC) Screen Presumptive negative Drugs of Abuse Note Disclamer Plasma/Serum Alcohol (0-0.07) % 06/03/17 06/03/17 Range/Units 00:07 00:53 WBC (4.5-11.0) K/mm3 RBC (3.65-5.03) M/mm3 Hgb (10.1-14.3) gm/dl Hct (30.3-42.9) % MCV (79-97) fl MCH (28-32) pg MCHC (30-34) % RDW (13.2-15.2) % Plt Count (140-440) K/mm3 Lymph % (Auto) (13.4-35.0) % [place] % (Auto) (0.0-7.3) % Eos % (Auto) (0.0-4.3) % Baso % (Auto) (0.0-1.8) % Lymph # (1.2-5.4) K/mm3 [place] # (0.0-0.8) K/mm3 Eos # (0.0-0.4) K/mm3 Baso # (0.0-0.1) K/mm3 Seg Neutrophils % (40.0-70.0) % Seg Neutrophils # (1.8-7.7) K/mm3 Sodium (137-145) mmol/L Potassium (3.6-5.0) mmol/L Chloride (98-107) mmol/L Carbon Dioxide (22-30) mmol/L Anion Gap mmol/L BUN (7-17) mg/dL Creatinine (0.7-1.2) mg/dL Estimated GFR ml/min BUN/Creatinine Ratio % Glucose (65-100) mg/dL Calcium (8.4-10.2) mg/dL Phosphorus 4.00 (2.5-4.5) mg/dL Magnesium 1.90 (1.7-2.3) mg/dL Total Bilirubin (0.1-1.2) mg/dL Direct Bilirubin (0-0.2) mg/dL Indirect Bilirubin mg/dL AST (5-40) units/L ALT (7-56) units/L Alkaline Phosphatase (35-129) units/L Total Creatine Kinase 118 (30-135) units/L CK-MB (CK-2) 3.8 (0.0-4.0) ng/mL CK-MB (CK-2) Rel Index 3.2 (0-4) Troponin T < 0.010 (0.00-0.029) ng/mL Total Protein (6.3-8.2) g/dL Albumin (3.9-5) g/dL Albumin/Globulin Ratio % HCG, Qual (Negative) Urine Color (Yellow) Urine Turbidity (Clear) Urine pH (5.0-7.0) Ur Specific [place] (1.003-1.030) Urine Protein (Negative) mg/dL Urine Glucose (UA) (Negative) mg/dL Urine Ketones (Negative) mg/dL Urine Blood (Negative) Urine Nitrite (Negative) Urine Bilirubin (Negative) Urine Urobilinogen (<2.0) mg/dL Ur Leukocyte Esterase (Negative) Urine WBC (Auto) (0.0-6.0) /HPF Urine RBC (Auto) (0.0-6.0) /HPF U Epithel Cells (Auto) (0-13.0) /HPF Urine Bacteria (Auto) (Negative) /HPF Amorphous Crystals Salicylates (2.8-20.0) mg/dL Urine Opiates Screen Urine Methadone Screen Acetaminophen (10.0-30.0) ug/mL Ur Barbiturates Screen Ur Phencyclidine Scrn Ur Amphetamines Screen U Benzodiazepines Scrn Urine Cocaine Screen U Marijuana (THC) Screen Drugs of Abuse Note Plasma/Serum Alcohol (0-0.07) % - EKG Data -: EKG Interpreted by Me EKG shows normal: sinus rhythm, axis (qrs 66), QRS complexes (80), ST-T waves ( no stemi/t inv) Rate: normal (94) - EKG Data When compared to previous EKG there are: no significant change - Medical Decision Making Patient supposedly attempted suicide by overdosing on pills postdates in the ER she does not want to . Labs reveal any acute abnormality except methamphetamine use. 1013 and transfer forms signed and patient is medically clear for inpatient psychiatric treatment - Differential Diagnosis overdose, schizophrenia, suicidal Critical Care Time: No Critical care attestation.: If time is entered above; I have spent that time in minutes in the direct care of this critically ill patient, excluding procedure time. ED Disposition Clinical Impression: Methamphetamine abuse, Suicidal ideation, Schizoaffective disorder, Medical clearance for psychiatric admission Disposition: DC/TX-65 PSY HOSP/PSY UNIT Is pt being admited?: No Condition: Stable Time of Disposition: 05:59 (awaiting acceptance)
[2017-06-03 00:16] LABS: BUN/Creatinine Ratio 17; Blood Urea Nitrogen 10 mg/dL (7-17); Calcium 8.5 mg/dL (8.4-10.2); Hemolysis Index 1
[2017-06-03 00:36] LABS: Creatine Kinase MB 3.8 ng/mL (0.0-4.0)
[2017-06-03 00:42] LABS: Amorphous Crystals,Urine 3+; Bacteria,Urine 2+ /HPF (Negative); Bilirubin,Urine NEG (Negative); Blood,Urine MOD (Negative); Color,Urine Yellow (Yellow); Protein,Urine <15 mg/dL mg/dL (Negative)
--- NOTE | 2017-06-03 00:42 | XRay Report ---
FINAL REPORT EXAM: XR CHEST 1V AP HISTORY: Chest pain TECHNIQUE: Single AP portable radiograph of the chest was obtained. PRIORS: None. FINDINGS: There are no focal consolidations to suggest pneumonia. No large pleural effusion. No pneumothorax. Tortuosity and mild atherosclerotic vascular calcifications within the thoracic aorta. Cardiac silhouette and mediastinal structures are unremarkable. No acute osseous abnormality identified. IMPRESSION: No radiographic evidence of acute cardiopulmonary disease. Mild atherosclerotic vascular calcifications.
[2017-06-03 00:46] LABS: WBC,Urine < 1.0 /HPF (0.0-6.0)
[2017-06-03 00:47] LABS: Amphetamine Screen,Urine PRESUMPTIVE POSITIVE; Benzodiazepines Screen,Urine PRESUMPTIVE NEGATIVE; Cannabinoid Screen,Urine PRESUMPTIVE NEGATIVE; Cocaine Screen,Urine PRESUMPTIVE NEGATIVE; Methadone Screen,Urine PRESUMPTIVE NEGATIVE; Opiate Screen,Urine PRESUMPTIVE NEGATIVE
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
[2017-06-04] MEDS ORDERED: RisperDAL PO SCH ×2 (02:00→22:00)
[2017-06-04 11:08] VITALS: BP 107/52
--- NOTE | 2017-06-04 15:28 | Progress Note ---
Subjective - Reason for Consult Consult date: 06/04/17 Reason for consult: Psychiatry Follow-up - Chief Complaint Chief complaint: "I don't want to talk" 47 year old female who presents to [facility] for suicide attempt via overdose. The patient refused to talk during the interview. Mental Status Exam - Vital signs Last Vital Signs Temp 98.8 F 06/04/17 11:00 Pulse 69 06/04/17 11:00 Resp 18 06/04/17 11:00 BP 107/52 06/04/17 11:00 Pulse Ox 98 06/04/17 11:00 - Exam Narrative exam: Unable to complete MSE, the patient refused to cooperate during the interview. Assessment and Plan Impression: Hx of Bipolar DO. Substance Use DO (amphetamines). The patient refused to talk during the interview. The patient attempted suicide by overdose. DDx: R/O Substance Induced Mood DO Recommendation/Plan: Continue 1013 with placement to [facility] today.
[2017-06-04] MEDS ORDERED: COGENTIN PO SCH (22:00)
== END 2017-06-04 11:08 ==
LOC: ED 22:58
DX: T14.91XA Suicide attempt, initial encounter (principal); F25.9 Schizoaffective disorder, unspecified; F17.200 Nicotine dependence, unspecified, uncomplicated; I21.9 Acute myocardial infarction, unspecified; F15.10 Other stimulant abuse, uncomplicated; F32.9 Major depressive disorder, single episode, unspecified; E78.00 Pure hypercholesterolemia, unspecified; X83.8XXA Intentional self-harm by other specified means, initial encounter; Y93.9 Activity, unspecified; Y92.89 Other specified places as the place of occurrence of the external cause; Y99.8 Other external cause status
CPT/HCPCS: 36415; 71045; 80048; 80074; 80307; 81001; 82550; 82553; 83735; 84100; 84484; 84703; 85025; 93005; 93010; 99285; G0480; 80320

== ENCOUNTER 2017-07-12 00:31 | Inpatient (IN) | payer OTHER ==
[2017-07-12 06:49] LABS: Basophils % (Auto) 0.4 % (0.0-1.8); Eosinophils % (Auto) 0.2 % (0.0-4.3); Hematocrit 35.3 % (30.3-42.9); Hemoglobin 11.5 gm/dl (10.1-14.3); Lymphocytes # (Auto) 1.5 K/mm3 (1.2-5.4); Lymphocytes % (Auto) 16.3 % (13.4-35.0); Mean Corpuscular HGB Conc 33 % (30-34); Mean Corpuscular Hemoglobin 27 pg (28-32); Mean Corpuscular Volume 83 fl (79-97); Monocytes % (Auto) 10.7 % (0.0-7.3); Platelet Count 367 K/mm3 (140-440); Red Blood Count 4.26 M/mm3 (3.65-5.03); Red Cell Distribution Width 15.9 % (13.2-15.2)
[2017-07-12 07:04] LABS: BUN/Creatinine Ratio 18; Blood Urea Nitrogen 9 mg/dL (7-17); Calcium 8.6 mg/dL (8.4-10.2); Hemolysis Index 0
[2017-07-12] MEDS ORDERED: ASPIRIN PO ONE (18:30)
[2017-07-12 19:42] LABS: Alanine Aminotransferase 14 units/L (7-56); Albumin 3.4 g/dL (3.9-5)
[2017-07-12 19:43] LABS: INR 0.9 (0.87-1.13); Partial Thromboplastin Time 32.8 Sec. (24.2-36.6)
[2017-07-12 19:53] LABS: Bilirubin,Direct < 0.2 mg/dL (0-0.2)
--- NOTE | 2017-07-12 20:11 | XRay Report ---
FINAL REPORT EXAM: XR CHEST 1V AP HISTORY: chest pain TECHNIQUE: Frontal chest x-ray Comparison: 06/03/2017 FINDINGS: Heart size is normal. Lungs are clear and well expanded without focal infiltrate or consolidation. Imaged axial skeleton is unremarkable. IMPRESSION: No acute cardiopulmonary disease. No pneumothorax identified.
--- NOTE | 2017-07-12 20:52 | Emergency Department Report ---
ED Chest Pain HPI - General Chief Complaint: Chest Pain Stated Complaint: CHEST PAIN Time Seen by Provider: 07/12/17 18:10 Source: patient Mode of arrival: Stretcher Limitations: No Limitations - History of Present Illness MD Complaint: chest pain -: Gradual, This afternoon Onset: during rest Pain Location: left chest Pain Radiation: none Severity: moderate Severity scale (0 -10): 5 Quality: tightness, heaviness, similar to prior [place] Consistency: constant Improves With: nothing Worsens With: nothing Context: other (Recently moved from [place]) Other Symptoms: denies: cough Treatments Prior to Arrival: none - Related Data Home Medications Medication Instructions Recorded Confirmed Last Taken hydrOXYzine PAMOATE [Vistaril] 100 mg PO BID 11/14/16 11/14/16 Unknown risperiDONE [RisperDAL] 2 mg PO QHS 11/14/16 11/14/16 Unknown Previous Rx's Medication Instructions Recorded Last Taken Type Sulfamethoxazole/Trimethoprim 1 each PO BID #14 tablet 11/16/16 Unknown Rx [Bactrim DS TAB] Amoxicillin/K Clav Tab [Augmentin 1 tab PO Q12HR #20 tab 04/19/17 Unknown Rx 875 mg] Ciprofloxacin 0.2%(Nf) 4 drops TID 7 Days droperette 04/19/17 Unknown Rx [Ciprofloxacin Otic 0.2%(Nf)] Allergies Allergy/AdvReac Type Severity Reaction Status Date / Time No Known Allergies Allergy Verified 11/13/16 13:01 Heart Score - HEART Score EKG: Non-specific Age: 45-65 Risk factors: > 3 risk factors or hx of atherosclerotic disease Troponin: < normal limit - Critical Actions Critical Actions: 4-6 pts:12-16.6% risk of adverse cardiac event. Should be admitted ED Review of Systems ROS: Stated complaint: CHEST PAIN Other details as noted in HPI Comment: All other systems reviewed and negative Constitutional: no symptoms reported Eyes: as per HPI. denies: vision change ENT: denies: ear pain Respiratory: denies: shortness of breath, SOB with exertion Cardiovascular: chest pain Endocrine: no symptoms reported Gastrointestinal: denies: abdominal pain, nausea, vomiting, diarrhea Genitourinary: denies: urgency, frequency, hematuria Musculoskeletal: denies: back pain, joint swelling Skin: denies: rash, lesions, change in color Neurological: denies: headache, weakness, numbness, paresthesias Psychiatric: denies: anxiety, depression, auditory hallucinations Hematological/Lymphatic: denies: easy bleeding, easy bruising ED Past Medical Hx - Past Medical History Hx Heart Attack/AMI: Yes (pt stated) Hx Diabetes: Yes (gestational) Hx Seizures: Yes Hx Psychiatric Treatment: Yes (depression / schizophrenia) Additional medical history: High cholesterol - Surgical History Hx Coronary Stent: Yes (patient states) Hx Breast Surgery: Yes (breast augmentation) Additional Surgical History: left leg surgery. x 2 - Social History Smoking Status: Current Every Day Smoker Substance Use Type: Marijuana - Medications Home Medications: Home Medications Medication Instructions Recorded Confirmed Last Taken Type hydrOXYzine PAMOATE [Vistaril] 100 mg PO BID 11/14/16 11/14/16 Unknown History risperiDONE [RisperDAL] 2 mg PO QHS 11/14/16 11/14/16 Unknown History Sulfamethoxazole/Trimethoprim 1 each PO BID #14 tablet 11/16/16 Unknown Rx [Bactrim DS TAB] Amoxicillin/K Clav Tab [Augmentin 1 tab PO Q12HR #20 tab 04/19/17 Unknown Rx 875 mg] Ciprofloxacin 0.2%(Nf) 4 drops TID 7 Days droperette 04/19/17 Unknown Rx [Ciprofloxacin Otic 0.2%(Nf)] ED Physical Exam - General Limitations: No Limitations General appearance: alert, in no apparent distress - Head Head exam: Present: atraumatic, normocephalic, normal inspection - Eye Eye exam: Present: normal appearance, PERRL, EOMI Pupils: Present: normal accommodation - ENT ENT exam: Present: normal exam, normal orophraynx - Neck Neck exam: Present: normal inspection, full ROM. Absent: tenderness - Respiratory Respiratory exam: Present: normal lung sounds bilaterally. Absent: respiratory distress, wheezes, rhonchi - Cardiovascular Cardiovascular Exam: Present: regular rate, normal rhythm - GI/Abdominal GI/Abdominal exam: Present: soft, normal bowel sounds. Absent: distended, tenderness, organomegaly - Extremities Exam Extremities exam: Present: other (Cellulitis left lower leg.) - Back Exam Back exam: Present: normal inspection, full ROM - Neurological Exam Neurological exam: Present: alert, oriented X3, CN II-XII intact - Psychiatric Psychiatric exam: Present: normal affect, normal mood - Skin Skin exam: Present: warm, dry, erythema (Left lower leg.) ED Course Vital Signs 07/12/17 07/12/17 05:47 06:19 Temperature 98.9 F 98.9 F Pulse Rate 101 H 82 Respiratory 18 16 Rate Blood Pressure 133/76 133/76 O2 Sat by Pulse 99 98 Oximetry KULWANT score - Kulwant Score Age > 65: (0) No Aspirin use within the Past 7 Days: (0) No 3 or more CAD Risk Factors: (1) Yes 2 or more Angina events in past 24 hrs: (1) Yes Known CAD with more than 50% Stenosis: (0) No Elevated Cardiac Markers: (0) No ST Deviation Greater than 0.5mm: (0) No KULWANT Score: 2 ED Medical Decision Making - Lab Data Result diagrams: 07/12/17 06:27 07/12/17 06:27 - EKG Data EKG shows normal: sinus rhythm Rate: tachycardia - EKG Data When compared to previous EKG there are: previous EKG unavailable Interpretation: no acute changes (Nonspecific ST and T wave changes.), nonspecific ST-T wave adrianna - Radiology Data Radiology results: report reviewed Critical care attestation.: If time is entered above; I have spent that time in minutes in the direct care of this critically ill patient, excluding procedure time. ED Disposition Clinical Impression: Chest pain Disposition: -09 OP ADMIT IP TO THIS HOSP Is pt being admited?: Yes Does the pt Need Aspirin: Yes Condition: Stable Instructions: Chest Pain (ED) Referrals: MAKAYLA SLOAN MD [Primary Care Provider] - 3-5 Days
--- NOTE | 2017-07-12 21:25 | History and Physical Report ---
History of Present Illness Date of examination: 07/12/17 History of present illness: 47-year-old woman with history of bipolar, schizophrenia, coronary artery disease comes emergency room with complaints of chest pain located in the left substernal area that started 1 week ago. she described the pain as as a heavy, sometimes sharp sensation, intermittent nature listed in less than 5 minutes, intensity 5/10, radiating to the jaw and left shoulder. She cannot identify exacerbating or relieving factor. Admits to nausea and vomiting, shortness of shortness of breath, palpitation, no diaphoresis. Also complaining of having suicidal thoughts earlier today, no plans. She has a history of MRSA, ulcer on the left leg which was healed but has really opened over the last 1 week Review of systems Constitutional: no weight loss, chills Ears, eyes, nose, mouth and throat: no nasal congestion, no nasal discharge, no sinus pressure, no vision change, no red eye. Neck: No neck pain or rigidity. Cardiovascular:+chest pain, palpitations Respiratory: No cough, shortness of breath Gastrointestinal: no abdominal pain, hematochezia Genitourinary : no dysuria, frequency , no hematuria Musculoskeletal: no joint swelling or muscle ache Integumentary: no rash, no pruritis Neurological: no parathesias, no numbness, no focal weakness Endocrine: no cold or heat intolerance, no polyuria or polydipsia Hematologic/Lymphatic: no easy bruising, no easy bleeding, no gland swelling Allergic/Immunologic: no urticaria, no angioedema. PAST MEDICAL HISTORY: bipolar, schizophrenia, coronary artery disease PAST SURGICAL HISTORY: Left leg, -, breast augmentation SOCIAL HISTORY: Works 7 cigarettes a day, social alcohol, no drugs FAMILY HISTORY: Hypertension Medications and Allergies Allergies Allergy/AdvReac Type Severity Reaction Status Date / Time No Known Allergies Allergy Verified 11/13/16 13:01 Home Medications Medication Instructions Recorded Confirmed Last Taken Type hydrOXYzine PAMOATE [Vistaril] 100 mg PO BID 11/14/16 11/14/16 Unknown History risperiDONE [RisperDAL] 2 mg PO QHS 11/14/16 11/14/16 Unknown History Sulfamethoxazole/Trimethoprim 1 each PO BID #14 tablet 11/16/16 Unknown Rx [Bactrim DS TAB] Amoxicillin/K Clav Tab [Augmentin 1 tab PO Q12HR #20 tab 04/19/17 Unknown Rx 875 mg] Ciprofloxacin 0.2%(Nf) 4 drops TID 7 Days droperette 04/19/17 Unknown Rx [Ciprofloxacin Otic 0.2%(Nf)] Exam - Physical Exam Narrative exam: Gen. appearance: Patient lying in bed, no apparent distress HEENT: Normocephalic, atraumatic, pupils equally round and reactive to light, extraocular movement intact, and no sclericterus,. No JVD or thyromegaly or nodule,neck supple, no carotid bruit ,mucous membranes moist, no exudate or erythema Heart: S1, S2, regular rate and rhythm Lungs: Clear to auscultation bilaterally, breathing comfortable Abdomen: Positive bowel sounds, nontender, nondistended, no organomegaly Extremity: No edema, cyanosis, clubbing Skin: Left leg ulcer, with surrounding erythema, No rash, nodules, warm, dry Neuro: Oriented 3, cranial nerves II-12 intact, speech is fluent, motor and sensory intact - Constitutional Vitals: Temp Pulse Resp BP Pulse Ox 98.9 F 82 16 133/76 98 07/12/17 06:19 07/12/17 06:19 07/12/17 06:19 07/12/17 06:19 07/12/17 06:19 Results - Labs CBC & Chem 7: 07/12/17 06:27 07/12/17 06:27 Labs: Abnormal lab results 07/12/17 07/12/17 07/12/17 Range/Units 06:27 06:27 06:27 MCH (28-32) pg RDW (13.2-15.2) % Meagher % (Auto) (0.0-7.3) % Meagher # (0.0-0.8) K/mm3 Seg Neutrophils % (40.0-70.0) % Chloride 96.7 L (98-107) mmol/L Creatinine 0.5 L (0.7-1.2) mg/dL Total Creatine Kinase (30-135) units/L Albumin (3.9-5) g/dL Salicylates < 0.3 L (2.8-20.0) mg/dL Acetaminophen < 5.0 L (10.0-30.0) ug/mL 04/22/18 04/22/18 04/22/18 Range/Units 06:27 19:02 19:02 MCH 27 L (28-32) pg RDW 15.9 H (13.2-15.2) % Meagher % (Auto) 10.7 H (0.0-7.3) % Meagher # 1.0 H (0.0-0.8) K/mm3 Seg Neutrophils % 72.4 H (40.0-70.0) % Chloride (98-107) mmol/L Creatinine (0.7-1.2) mg/dL Total Creatine Kinase 175 H (30-135) units/L Albumin 3.4 L (3.9-5) g/dL Salicylates (2.8-20.0) mg/dL Acetaminophen (10.0-30.0) ug/mL - Imaging and Cardiology EKG: image reviewed Chest x-ray: image reviewed Assessment and Plan Assessment Unstable angina Left leg cellulitis Suicide ideation Coronary artery disease Schizophrenia Bipolar Plan Admit to medicine Check cardiac enzymes, obtain stress test Start IV Vancomycin, Levaquin, obtain blood cultures, wound culturs IV morphine, DVT prophylaxis, psych consult
[2017-07-12] MEDS ORDERED: SODIUM CHLORIDE FLUSH SYRINGE 10 ML IV PRN (21:27)
[2017-07-12] MEDS ORDERED: TYLENOL PO PRN (21:27)
[2017-07-12 22:05] LABS: Creatine Kinase MB 2.5 ng/mL (0.0-4.0)
[2017-07-12] MEDS ORDERED: MORPHINE ONE (22:40)
[2017-07-12] MEDS: SODIUM CHLORIDE FLUSH SYRINGE 10 ML IV SCH (22:45)
[2017-07-12] MEDS: MORPHINE IV PRN (22:47)
[2017-07-12] MEDS ORDERED: ASPIRIN ONE (23:31)
[2017-07-13] MEDS ORDERED: VANCOMYCIN 1,250 MG in NACL 0.9% 250ML 250 ML IV ONE (01:00)
[2017-07-13] MEDS ORDERED: VANCOMYCIN PHARMACY TO DOSE IV SCH (01:00)
[2017-07-13] MEDS ORDERED: VANCOMYCIN/NS 1 GM/250 ML 1 GM/250 ML BAG IV SCH (01:00)
[2017-07-13] MEDS ORDERED: LEVAQUIN 750MG/150ML 750 MG/150 ML BAG IV ONE (01:14)
[2017-07-13] MEDS: LEVAQUIN 750MG/150ML 750 MG/150 ML BAG IV SCH ×2 (01:28→21:04)
[2017-07-13 04:27] LABS: Hematocrit 33.8 % (30.3-42.9); Hemoglobin 11.2 gm/dl (10.1-14.3); Mean Corpuscular HGB Conc 33 % (30-34); Mean Corpuscular Hemoglobin 28 pg (28-32); Mean Corpuscular Volume 83 fl (79-97); Platelet Count 308 K/mm3 (140-440); Red Blood Count 4.05 M/mm3 (3.65-5.03)
[2017-07-13 04:43] LABS: BUN/Creatinine Ratio 20; Blood Urea Nitrogen 10 mg/dL (7-17); Calcium 7.7 mg/dL (8.4-10.2); Hemolysis Index 1
[2017-07-13 04:45] LABS: Creatine Kinase MB 2.1 ng/mL (0.0-4.0)
[2017-07-13] MEDS: MORPHINE IV PRN ×4 (04:52→21:03)
[2017-07-13] MEDS ORDERED: MORPHINE ONE (04:52)
[2017-07-13 05:57] LABS: Basophils % (Manual) 0 % (0.0-1.8); Platelet Estimate Consistent w Auto; Total Cells Counted 100
[2017-07-13] MEDS ORDERED: LEXISCAN IV ONE (08:37)
--- NOTE | 2017-07-13 13:21 | Progress Note ---
Assessment and Plan Assessment and plan: Unstable angina, r/o ACS -serial troponin neg -s/p NST, report pending -cont prn iv morphine Left leg cellulitis with h/o of MRSA -will cont iv vanc and d/c levaquin -blood and wound cultures pending -wound care nurse consulted H/o of bipolar disorder with suicidal ideation -cont one-one observation -psych consulted Schizophrenia -psych consulted Disp: for discharge/transfer when medically stable History Interval history: Pt continues to complain of LT sided chest pain and requested for morphine, which she received in the ED Hospitalist Physical - Constitutional Vitals: Temp Pulse Resp BP Pulse Ox 98.9 F 72 18 102/49 100 07/12/17 06:19 07/13/17 10:57 07/13/17 10:57 07/13/17 10:57 07/13/17 13:02 General appearance: Present: no acute distress - EENT Eyes: Present: PERRL, EOM intact ENT: hearing intact, clear oral mucosa - Neck Neck: Present: supple - Respiratory Respiratory effort: normal Respiratory: bilateral: CTA - Cardiovascular Rhythm: regular Heart Sounds: Present: S1 & S2 - Extremities Extremities: No edema - Abdominal General gastrointestinal: soft, non-tender, normal bowel sounds - Integumentary Integumentary: Present: erythema (on LLE) - Neurologic Neurologic: CNII-XII intact Results - Labs CBC & Chem 7: 07/13/17 04:19 07/13/17 04:19 Labs: Laboratory Last Values WBC 3.4 K/mm3 (4.5-11.0) L 07/13/17 04:19 RBC 4.05 M/mm3 (3.65-5.03) 07/13/17 04:19 Hgb 11.2 gm/dl (10.1-14.3) 07/13/17 04:19 Hct 33.8 % (30.3-42.9) 07/13/17 04:19 MCV 83 fl (79-97) 07/13/17 04:19 MCH 28 pg (28-32) 07/13/17 04:19 MCHC 33 % (30-34) 07/13/17 04:19 RDW 16.0 % (13.2-15.2) H 07/13/17 04:19 Plt Count 308 K/mm3 (140-440) 07/13/17 04:19 Lymph % (Auto) 16.3 % (13.4-35.0) 07/12/17 06:27 Powell % (Auto) Applied Researcher 07/13/17 04:19 Eos % (Auto) 0.2 % (0.0-4.3) 07/12/17 06:27 Baso % (Auto) 0.4 % (0.0-1.8) 07/12/17 06:27 Lymph # 1.5 K/mm3 (1.2-5.4) 07/12/17 06:27 Powell # 1.0 K/mm3 (0.0-0.8) H 07/12/17 06:27 Eos # 0.0 K/mm3 (0.0-0.4) 07/12/17 06:27 Baso # 0.0 K/mm3 (0.0-0.1) 07/12/17 06:27 Add Manual Diff Complete 07/13/17 04:19 Total Counted 100 07/13/17 04:19 Seg Neutrophils % Applied Researcher 07/13/17 04:19 Seg Neuts % (Manual) 31.0 % (40.0-70.0) L 07/13/17 04:19 Band Neutrophils % 0 % 07/13/17 04:19 Lymphocytes % (Manual) 45.0 % (13.4-35.0) H 07/13/17 04:19 Reactive Lymphs % (Man) 0 % 07/13/17 04:19 Monocytes % (Manual) 13.0 % (0.0-7.3) H 07/13/17 04:19 Eosinophils % (Manual) 11.0 % (0.0-4.3) H 07/13/17 04:19 Basophils % (Manual) 0 % (0.0-1.8) 07/13/17 04:19 Metamyelocytes % 0 % 07/13/17 04:19 Myelocytes % 0 % 07/13/17 04:19 Promyelocytes % 0 % 07/13/17 04:19 Blast Cells % 0 % 07/13/17 04:19 Nucleated RBC % Not Reportable 07/13/17 04:19 Seg Neutrophils # 6.7 K/mm3 (1.8-7.7) 07/12/17 06:27 Seg Neutrophils # Man 1.1 K/mm3 (1.8-7.7) L 07/13/17 04:19 Band Neutrophils # 0.0 K/mm3 07/13/17 04:19 Lymphocytes # (Manual) 1.5 K/mm3 (1.2-5.4) 07/13/17 04:19 Abs React Lymphs (Man) 0.0 K/mm3 07/13/17 04:19 Monocytes # (Manual) 0.4 K/mm3 (0.0-0.8) 07/13/17 04:19 Eosinophils # (Manual) 0.4 K/mm3 (0.0-0.4) 07/13/17 04:19 Basophils # (Manual) 0.0 K/mm3 (0.0-0.1) 07/13/17 04:19 Metamyelocytes # 0.0 K/mm3 07/13/17 04:19 Myelocytes # 0.0 K/mm3 07/13/17 04:19 Promyelocytes # 0.0 K/mm3 07/13/17 04:19 Blast Cells # 0.0 K/mm3 07/13/17 04:19 WBC Morphology Not Reportable 07/13/17 04:19 Hypersegmented Neuts Not Reportable 07/13/17 04:19 Hyposegmented Neuts Not Reportable 07/13/17 04:19 Hypogranular Neuts Not Reportable 07/13/17 04:19 Smudge Cells Not Reportable 07/13/17 04:19 Toxic Granulation Not Reportable 07/13/17 04:19 Toxic Vacuolation Not Reportable 07/13/17 04:19 Dohle Bodies Not Reportable 07/13/17 04:19 Pelger-Huet Anomaly Not Reportable 07/13/17 04:19 Gifty Rods Not Reportable 07/13/17 04:19 Platelet Estimate Consistent w auto 07/13/17 04:19 Clumped Platelets Not Reportable 07/13/17 04:19 Plt Clumps, EDTA Not Reportable 07/13/17 04:19 Large Platelets Not Reportable 07/13/17 04:19 Giant Platelets Not Reportable 07/13/17 04:19 Platelet Satelliting Not Reportable 07/13/17 04:19 Plt Morphology Comment Not Reportable 07/13/17 04:19 RBC Morphology Not Reportable 07/13/17 04:19 Dimorphic RBCs Not Reportable 07/13/17 04:19 Polychromasia Not Reportable 07/13/17 04:19 Hypochromasia Not Reportable 07/13/17 04:19 Poikilocytosis Not Reportable 07/13/17 04:19 Anisocytosis Not Reportable 07/13/17 04:19 Microcytosis Not Reportable 07/13/17 04:19 Macrocytosis Not Reportable 07/13/17 04:19 Spherocytes Not Reportable 07/13/17 04:19 Pappenheimer Bodies Not Reportable 07/13/17 04:19 Sickle Cells Not Reportable 07/13/17 04:19 Target Cells Not Reportable 07/13/17 04:19 Tear Drop Cells Not Reportable 07/13/17 04:19 Ovalocytes Not Reportable 07/13/17 04:19 Helmet Cells Not Reportable 07/13/17 04:19 Rg-Carnegie Bodies Not Reportable 07/13/17 04:19 [place] Rings Not Reportable 07/13/17 04:19 [place] Cells Not Reportable 07/13/17 04:19 Bite Cells Not Reportable 07/13/17 04:19 Crenated Cell Not Reportable 07/13/17 04:19 Elliptocytes Not Reportable 07/13/17 04:19 Acanthocytes (Spur) Not Reportable 07/13/17 04:19 Rouleaux Not Reportable 07/13/17 04:19 Hemoglobin C Crystals Not Reportable 07/13/17 04:19 Schistocytes Not Reportable 07/13/17 04:19 Malaria parasites Not Reportable 07/13/17 04:19 Jimy Bodies Not Reportable 07/13/17 04:19 Hem Pathologist Commnt No 07/13/17 04:19 PT 12.6 Sec. (12.2-14.9) 07/12/17 19:02 INR 0.90 (0.87-1.13) 07/12/17 19:02 APTT 32.8 Sec. (24.2-36.6) 07/12/17 19:02 Sodium 136 mmol/L (137-145) L 07/13/17 04:19 Potassium 4.0 mmol/L (3.6-5.0) 07/13/17 04:19 Chloride 97.4 mmol/L (98-107) L 07/13/17 04:19 Carbon Dioxide 29 mmol/L (22-30) 07/13/17 04:19 Anion Gap 14 mmol/L 07/13/17 04:19 BUN 10 mg/dL (7-17) 07/13/17 04:19 Creatinine 0.5 mg/dL (0.7-1.2) L 07/13/17 04:19 Estimated GFR > 60 ml/min 07/13/17 04:19 BUN/Creatinine Ratio 20 % 07/13/17 04:19 Glucose 82 mg/dL (65-100) 07/13/17 04:19 Calcium 7.7 mg/dL (8.4-10.2) L 07/13/17 04:19 Total Bilirubin 0.20 mg/dL (0.1-1.2) 07/12/17 19:02 Direct Bilirubin < 0.2 mg/dL (0-0.2) 07/12/17 19:02 Indirect Bilirubin 0.0 mg/dL 07/12/17 19:02 AST 21 units/L (5-40) 07/12/17 19:02 ALT 14 units/L (7-56) 07/12/17 19:02 Alkaline Phosphatase 90 units/L (35-129) 07/12/17 19:02 Total Creatine Kinase 142 units/L (30-135) H 07/13/17 04:19 CK-MB (CK-2) 2.1 ng/mL (0.0-4.0) 07/13/17 04:19 CK-MB (CK-2) Rel Index 1.4 (0-4) 07/13/17 04:19 Troponin T < 0.010 ng/mL (0.00-0.029) 07/13/17 04:19 Total Protein 6.6 g/dL (6.3-8.2) 07/12/17 19:02 Albumin 3.4 g/dL (3.9-5) L 07/12/17 19:02 Albumin/Globulin Ratio 1.1 % 07/12/17 19:02 Salicylates < 0.3 mg/dL (2.8-20.0) L 07/12/17 06:27 Acetaminophen < 5.0 ug/mL (10.0-30.0) L 07/12/17 06:27 Plasma/Serum Alcohol < 0.01 % (0-0.07) 07/12/17 06:27
[2017-07-13] MEDS ORDERED: NITROSTAT SL PRN (13:26)
[2017-07-13] MEDS: VANCOMYCIN/0.45 NS 1 GM/250 ML 1 GM/250 ML BAG IV SCH ×3 (15:13→21:03)
[2017-07-13] MEDS: SODIUM CHLORIDE FLUSH SYRINGE 10 ML IV SCH (15:14)
[2017-07-13 16:56] LABS: Bilirubin,Urine NEG (Negative); Blood,Urine NEG (Negative); Color,Urine Yellow (Yellow); Protein,Urine <15 mg/dL mg/dL (Negative); RBC,Urine < 1.0 /HPF (0.0-6.0); Urobilinogen,Urine < 2.0 mg/dL (<2.0)
[2017-07-13 17:12] LABS: Amphetamine Screen,Urine PRESUMPTIVE NEGATIVE; Benzodiazepines Screen,Urine PRESUMPTIVE NEGATIVE; Cannabinoid Screen,Urine PRESUMPTIVE NEGATIVE; Cocaine Screen,Urine PRESUMPTIVE NEGATIVE; Methadone Screen,Urine PRESUMPTIVE NEGATIVE; Opiate Screen,Urine PRESUMPTIVE NEGATIVE
[2017-07-13] MEDS: ZOFRAN IV PRN ×2 (17:36→21:02)
--- NOTE | 2017-07-14 01:28 | Treadmill Report ---
NUCLEAR PERFUSION SCAN REFERRING PHYSICIAN: Annabel Persaud MD PROTOCOL: The patient was brought to the stress lab in a postoperative state, given 10 mCi of technetium 99m at rest. The patient underwent rest imaging. The patient underwent Lexiscan stress test. Per standard protocol, at peak stress, the patient was given 26 mCi of technetium 99m. Shortly thereafter, the patient underwent stress imaging. Raw imaging reveals mild GI artifact, no significant motion artifact. There is also breast attenuation noted. SPECT imaging examined carefully in horizontal long axis, vertical long axis, short axis views. There is normal homogenous uptake. There is mild breast attenuation partially obscuring the anterior wall, but grossly no evidence of significant fixed or reversible perfusion defects suggestive of prior infarction or ischemia. Gated wall motion reveals normal systolic thickening, calculated ejection fraction of 60%, no TID. CONCLUSIONS: 1. Probably normal myocardial perfusion scan, breast attenuation is present. No large or significant degree of ischemia or prior infarction identified. 2. Normal left ventricular systolic performance without evidence of transient ischemic dilatation or stress-induced segmental wall motion abnormalities. JOB# [id number] MOSHE/SCOTT
[2017-07-14] MEDS: VANCOMYCIN/0.45 NS 1 GM/250 ML 1 GM/250 ML BAG IV SCH ×4 (03:46→20:30)
[2017-07-14] MEDS: SODIUM CHLORIDE FLUSH SYRINGE 10 ML IV SCH ×3 (03:47→21:17)
[2017-07-14] MEDS: MORPHINE IV PRN ×4 (03:49→20:30)
[2017-07-14] MEDS ORDERED: ROBAXIN PO PRN (14:37)
--- NOTE | 2017-07-14 16:15 | Progress Note ---
Assessment and Plan Assessment and plan: 47-year-old woman with history of bipolar, schizophrenia, coronary artery disease comes emergency room with complaints of chest pain located in the left substernal area that started 1 week ago. she described the pain as as a heavy, sometimes sharp sensation, intermittent nature listed in less than 5 minutes, intensity 5/10, radiating to the jaw and left shoulder. She cannot identify exacerbating or relieving factor. Admits to nausea and vomiting, shortness of shortness of breath, palpitation, no diaphoresis. Also complaining of having suicidal thoughts earlier today, no plans. She has a history of MRSA, ulcer on the left leg which was healed but has really opened over the last 1 week. Atypical Chest Pain * Negative stress test * Likely costochondritis * Start on Robxain Left leg cellulitis with h/o of MRSA -will cont iv vanc and d/c levaquin -Place on Isolation. -blood and wound cultures pending -wound care nurse consulted H/o of bipolar disorder with suicidal ideation -cont one-one observation -patient now lara suicidal ideation -psych consulted Schizophrenia -psych consulted Disp: await final wound culture and plan discharge accordingly in respect to abx. History Interval history: Patient seen and examined this am, still reports chest pain. 3/10 IN Intensity, left sided supramammary area, sometimes reproducible, sometimes affected by deep breath. Hospitalist Physical - Physical exam Narrative exam: Gen. appearance: Patient lying in bed, no apparent distress HEENT: Normocephalic, atraumatic, pupils equally round and reactive to light, extraocular movement intact, and no sclericterus,. No JVD or thyromegaly or nodule,neck supple, no carotid bruit ,mucous membranes moist, no exudate or erythema Heart: S1, S2, regular rate and rhythm Lungs: Clear to auscultation bilaterally, breathing comfortable Abdomen: Positive bowel sounds, nontender, nondistended, no organomegaly Extremity: No edema, cyanosis, clubbing Skin: Left leg ulcer, with surrounding erythema, No rash, nodules, warm, dry MSK: Reproducible tenderness left chest wall Neuro: Oriented 3, cranial nerves II-12 intact, speech is fluent, motor and sensory intact - Constitutional Vitals: Temp Pulse Resp BP Pulse Ox 98.2 F 68 16 111/45 99 07/14/17 04:06 07/14/17 04:06 07/14/17 04:06 07/14/17 04:06 07/14/17 04:06 General appearance: Present: no acute distress Results - Labs CBC & Chem 7: 07/13/17 04:19 07/13/17 04:19 Labs: Laboratory Last Values WBC 3.4 K/mm3 (4.5-11.0) L 07/13/17 04:19 RBC 4.05 M/mm3 (3.65-5.03) 07/13/17 04:19 Hgb 11.2 gm/dl (10.1-14.3) 07/13/17 04:19 Hct 33.8 % (30.3-42.9) 07/13/17 04:19 MCV 83 fl (79-97) 07/13/17 04:19 MCH 28 pg (28-32) 07/13/17 04:19 MCHC 33 % (30-34) 07/13/17 04:19 RDW 16.0 % (13.2-15.2) H 07/13/17 04:19 Plt Count 308 K/mm3 (140-440) 07/13/17 04:19 Lymph % (Auto) 16.3 % (13.4-35.0) 07/12/17 06:27 [place] % (Auto) Doll Wig Maker Rooted Hair 07/13/17 04:19 Eos % (Auto) 0.2 % (0.0-4.3) 07/12/17 06:27 Baso % (Auto) 0.4 % (0.0-1.8) 07/12/17 06:27 Lymph # 1.5 K/mm3 (1.2-5.4) 07/12/17 06:27 [place] # 1.0 K/mm3 (0.0-0.8) H 07/12/17 06:27 Eos # 0.0 K/mm3 (0.0-0.4) 07/12/17 06:27 Baso # 0.0 K/mm3 (0.0-0.1) 07/12/17 06:27 Add Manual Diff Complete 07/13/17 04:19 Total Counted 100 07/13/17 04:19 Seg Neutrophils % Doll Wig Maker Rooted Hair 07/13/17 04:19 Seg Neuts % (Manual) 31.0 % (40.0-70.0) L 07/13/17 04:19 Band Neutrophils % 0 % 07/13/17 04:19 Lymphocytes % (Manual) 45.0 % (13.4-35.0) H 07/13/17 04:19 Reactive Lymphs % (Man) 0 % 07/13/17 04:19 Monocytes % (Manual) 13.0 % (0.0-7.3) H 07/13/17 04:19 Eosinophils % (Manual) 11.0 % (0.0-4.3) H 07/13/17 04:19 Basophils % (Manual) 0 % (0.0-1.8) 07/13/17 04:19 Metamyelocytes % 0 % 07/13/17 04:19 Myelocytes % 0 % 07/13/17 04:19 Promyelocytes % 0 % 07/13/17 04:19 Blast Cells % 0 % 07/13/17 04:19 Nucleated RBC % Not Reportable 07/13/17 04:19 Seg Neutrophils # 6.7 K/mm3 (1.8-7.7) 07/12/17 06:27 Seg Neutrophils # Man 1.1 K/mm3 (1.8-7.7) L 07/13/17 04:19 Band Neutrophils # 0.0 K/mm3 07/13/17 04:19 Lymphocytes # (Manual) 1.5 K/mm3 (1.2-5.4) 07/13/17 04:19 Abs React Lymphs (Man) 0.0 K/mm3 07/13/17 04:19 Monocytes # (Manual) 0.4 K/mm3 (0.0-0.8) 07/13/17 04:19 Eosinophils # (Manual) 0.4 K/mm3 (0.0-0.4) 07/13/17 04:19 Basophils # (Manual) 0.0 K/mm3 (0.0-0.1) 07/13/17 04:19 Metamyelocytes # 0.0 K/mm3 07/13/17 04:19 Myelocytes # 0.0 K/mm3 07/13/17 04:19 Promyelocytes # 0.0 K/mm3 07/13/17 04:19 Blast Cells # 0.0 K/mm3 07/13/17 04:19 WBC Morphology Not Reportable 07/13/17 04:19 Hypersegmented Neuts Not Reportable 07/13/17 04:19 Hyposegmented Neuts Not Reportable 07/13/17 04:19 Hypogranular Neuts Not Reportable 07/13/17 04:19 Smudge Cells Not Reportable 07/13/17 04:19 Toxic Granulation Not Reportable 07/13/17 04:19 Toxic Vacuolation Not Reportable 07/13/17 04:19 Dohle Bodies Not Reportable 07/13/17 04:19 Pelger-Huet Anomaly Not Reportable 07/13/17 04:19 Gifty Rods Not Reportable 07/13/17 04:19 Platelet Estimate Consistent w auto 07/13/17 04:19 Clumped Platelets Not Reportable 07/13/17 04:19 Plt Clumps, EDTA Not Reportable 07/13/17 04:19 Large Platelets Not Reportable 07/13/17 04:19 Giant Platelets Not Reportable 07/13/17 04:19 Platelet Satelliting Not Reportable 07/13/17 04:19 Plt Morphology Comment Not Reportable 07/13/17 04:19 RBC Morphology Not Reportable 07/13/17 04:19 Dimorphic RBCs Not Reportable 07/13/17 04:19 Polychromasia Not Reportable 07/13/17 04:19 Hypochromasia Not Reportable 07/13/17 04:19 Poikilocytosis Not Reportable 07/13/17 04:19 Anisocytosis Not Reportable 07/13/17 04:19 Microcytosis Not Reportable 07/13/17 04:19 Macrocytosis Not Reportable 07/13/17 04:19 Spherocytes Not Reportable 07/13/17 04:19 Pappenheimer Bodies Not Reportable 07/13/17 04:19 Sickle Cells Not Reportable 07/13/17 04:19 Target Cells Not Reportable 07/13/17 04:19 Tear Drop Cells Not Reportable 07/13/17 04:19 Ovalocytes Not Reportable 07/13/17 04:19 Helmet Cells Not Reportable 07/13/17 04:19 Rg-[place] Bodies Not Reportable 07/13/17 04:19 [place] Rings Not Reportable 07/13/17 04:19 [place] Cells Not Reportable 07/13/17 04:19 Bite Cells Not Reportable 07/13/17 04:19 Crenated Cell Not Reportable 07/13/17 04:19 Elliptocytes Not Reportable 07/13/17 04:19 Acanthocytes (Spur) Not Reportable 07/13/17 04:19 Rouleaux Not Reportable 07/13/17 04:19 Hemoglobin C Crystals Not Reportable 07/13/17 04:19 Schistocytes Not Reportable 07/13/17 04:19 Malaria parasites Not Reportable 07/13/17 04:19 Jimy Bodies Not Reportable 07/13/17 04:19 Hem Pathologist Commnt No 07/13/17 04:19 PT 12.6 Sec. (12.2-14.9) 07/12/17 19:02 INR 0.90 (0.87-1.13) 07/12/17 19:02 APTT 32.8 Sec. (24.2-36.6) 07/12/17 19:02 Sodium 136 mmol/L (137-145) L 07/13/17 04:19 Potassium 4.0 mmol/L (3.6-5.0) 07/13/17 04:19 Chloride 97.4 mmol/L (98-107) L 07/13/17 04:19 Carbon Dioxide 29 mmol/L (22-30) 07/13/17 04:19 Anion Gap 14 mmol/L 07/13/17 04:19 BUN 10 mg/dL (7-17) 07/13/17 04:19 Creatinine 0.5 mg/dL (0.7-1.2) L 07/13/17 04:19 Estimated GFR > 60 ml/min 07/13/17 04:19 BUN/Creatinine Ratio 20 % 07/13/17 04:19 Glucose 82 mg/dL (65-100) 07/13/17 04:19 Calcium 7.7 mg/dL (8.4-10.2) L 07/13/17 04:19 Total Bilirubin 0.20 mg/dL (0.1-1.2) 07/12/17 19:02 Direct Bilirubin < 0.2 mg/dL (0-0.2) 07/12/17 19:02 Indirect Bilirubin 0.0 mg/dL 07/12/17 19:02 AST 21 units/L (5-40) 07/12/17 19:02 ALT 14 units/L (7-56) 07/12/17 19:02 Alkaline Phosphatase 90 units/L (35-129) 07/12/17 19:02 Total Creatine Kinase 142 units/L (30-135) H 07/13/17 04:19 CK-MB (CK-2) 2.1 ng/mL (0.0-4.0) 07/13/17 04:19 CK-MB (CK-2) Rel Index 1.4 (0-4) 07/13/17 04:19 Troponin T < 0.010 ng/mL (0.00-0.029) 07/13/17 04: Total Protein 6.6 g/dL (6.3-8.2) 07/12/17 19:02 Albumin 3.4 g/dL (3.9-5) L 07/12/17 19:02 Albumin/Globulin Ratio 1.1 % 07/12/17 19:02 Urine Color Yellow (Yellow) 07/13/17 16:01 Urine Turbidity Clear (Clear) 07/13/17 16:01 Urine pH 8.0 (5.0-7.0) H 07/13/17 16:01 Ur Specific [place] 1.006 (1.003-1.030) 07/13/17 16:01 Urine Protein <15 mg/dl mg/dL (Negative) 07/13/17 16:01 Urine Glucose (UA) Neg mg/dL (Negative) 07/13/17 16:01 Urine Ketones Neg mg/dL (Negative) 07/13/17 16:01 Urine Blood Neg (Negative) 07/13/17 16:01 Urine Nitrite Neg (Negative) 07/13/17 16:01 Urine Bilirubin Neg (Negative) 07/13/17 16:01 Urine Urobilinogen < 2.0 mg/dL (<2.0) 07/13/17 16:01 Ur Leukocyte Esterase Sm (Negative) 07/13/17 16:01 Urine WBC (Auto) 2.0 /HPF (0.0-6.0) 07/13/17 16:01 Urine RBC (Auto) < 1.0 /HPF (0.0-6.0) 07/13/17 16:01 U Epithel Cells (Auto) 2.0 /HPF (0-13.0) 07/13/17 16:01 Salicylates < 0.3 mg/dL (2.8-20.0) L 07/12/17 06:27 Urine Opiates Screen Presumptive negative 07/13/17 16:01 Urine Methadone Screen Presumptive negative 07/13/17 16:01 Acetaminophen < 5.0 ug/mL (10.0-30.0) L 07/12/17 06:27 Ur Barbiturates Screen Presumptive negative 07/13/17 16:01 Ur Phencyclidine Scrn Presumptive negative 07/13/17 16:01 Ur Amphetamines Screen Presumptive negative 07/13/17 16:01 U Benzodiazepines Scrn Presumptive negative 07/13/17 16:01 Urine Cocaine Screen Presumptive negative 07/13/17 16:01 U Marijuana (THC) Screen Presumptive negative 07/13/17 16:01 Drugs of Abuse Note Disclamer 07/13/17 16:01 Plasma/Serum Alcohol < 0.01 % (0-0.07) 07/12/17 06:27 - Imaging and Cardiology Chest x-ray: image reviewed (NO ACUTE PATHOLOGY )
--- NOTE | 2017-07-14 18:58 | Consultation ---
History of Present Illness - Reason for Consult Reason for consult: psych problem - History of Present Psychiatric Illness Patient was guarded about the clinical interview and stated that she did not need to be seen my psychiatry. She also stated that she is not suicidal and does not need to be on 1013. We will reattempt clinical interview is more detail tomorrow to see if patient's more cooperative. At the current time, we would recommend that the patient's home psychiatric medications be reconciled and reinitiated. Medications and Allergies Allergies Allergy/AdvReac Type Severity Reaction Status Date / Time egg AdvReac Itching Verified 07/14/17 08:45 Home Medications Medication Instructions Recorded Confirmed Last Taken Type hydrOXYzine PAMOATE [Vistaril] 100 mg PO BID 11/14/16 07/13/17 2 Weeks Ago History ~06/29/17 risperiDONE [RisperDAL] 2 mg PO QHS 11/14/16 07/13/17 2 Weeks Ago History ~06/29/17 Sulfamethoxazole/Trimethoprim 1 each PO BID #14 tablet 11/16/16 07/13/17 2 Weeks Ago Rx [Bactrim DS TAB] ~06/29/17 Active Meds: Active Medications Acetaminophen (Tylenol) 650 mg PO Q4H PRN PRN Reason: Pain MILD(1-3)/Fever >100.5/SAINI Vancomycin HCl (Vancomycin/0.45 Ns 1 Gm/250 Ml) 1 gm in 250 mls @ 125 mls/hr IV Q8H COUNTS INCLUDE 234 BEDS AT THE [facility] Last Admin: 07/14/17 11:40 Dose: 250 mls/hr Methocarbamol (Robaxin) 750 mg PO Q8H PRN PRN Reason: Muscle Spasm Morphine Sulfate (Morphine) 2 mg IV Q4H PRN PRN Reason: Pain, Moderate (4-6) Last Admin: 07/14/17 16:00 Dose: 2 mg Nitroglycerin (Nitrostat) 0.4 mg SL .Q5MIN PRN PRN Reason: Chest Pain Ondansetron HCl (Zofran) 4 mg IV Q8H PRN PRN Reason: Nausea And Vomiting Last Admin: 07/13/17 21:02 Dose: 4 mg Sodium Chloride (Sodium Chloride Flush Syringe 10 Ml) 10 ml IV BID COUNTS INCLUDE 234 BEDS AT THE [facility] Last Admin: 07/14/17 11:41 Dose: 10 ml Sodium Chloride (Sodium Chloride Flush Syringe 10 Ml) 10 ml IV PRN PRN PRN Reason: LINE FLUSH Vancomycin HCl (Vancomycin Pharmacy To Dose) 1 each IV PKCONSULT MIKE Mental Status Exam - Vital signs Last Vital Signs Temp 98.2 F 07/14/17 04:06 Pulse 69 07/14/17 14:00 Resp 16 07/14/17 04:06 BP 111/45 07/14/17 04:06 Pulse Ox 99 07/14/17 04:06 Results Result Diagrams: 07/13/17 04:19 07/13/17 04:19 All other labs normal.
[2017-07-15] MEDS ORDERED: AMBIEN PO ONE (01:34)
[2017-07-15] MEDS: MORPHINE IV PRN ×2 (01:35→09:35)
[2017-07-15] MEDS: VANCOMYCIN/0.45 NS 1 GM/250 ML 1 GM/250 ML BAG IV SCH ×4 (03:59→20:12)
[2017-07-15] MEDS: SODIUM CHLORIDE FLUSH SYRINGE 10 ML IV SCH ×2 (09:35→22:39)
--- NOTE | 2017-07-15 09:52 | Progress Note ---
Assessment and Plan Assessment and plan: 47-year-old woman with history of bipolar, schizophrenia, coronary artery disease comes emergency room with complaints of chest pain located in the left substernal area that started 1 week ago. Also complained of having suicidal thoughts earlier. She has a history of MRSA, ulcer on the left leg which was healed but has really opened over the last 1 week. Atypical Chest Pain * Negative stress test * Likely costochondritis * Start on Robxain * Left leg cellulitis with h/o of MRSA -continue iv vancomycin -contoinue contact isolation for possible MRSAPlace on Isolation. -blood and wound cultures pending -wound care nurse consulted H/o of bipolar disorder with suicidal ideation -cont one-one observation -psych following Schizophrenia -psych following Disp: await final wound culture . Currently staph aureus, sensitivity pending. History Interval history: Asking for more pain meds, suicidal Hospitalist Physical - Physical exam Narrative exam: General:Not in acute distress, lying in bed HEENT:Normocephalic, atraumatic Lungs:Clear to auscultation, no rales , no wheeze Heart:S1 and S2 regular, no murmurs, rubs or gallop Abd: soft, non tender, non distended, normal bowel sounds Ext:no edema, no clubbing or cyanosis Neuro:Awake,alert,oriented x 3, moves all extremities, Psych: - Constitutional Vitals: Temp Pulse Resp BP Pulse Ox 98.0 F 74 20 118/43 97 07/15/17 08:18 07/15/17 08:18 07/15/17 08:18 07/15/17 08:18 07/15/17 08:18 General appearance: Present: no acute distress Results - Labs CBC & Chem 7: 07/13/17 04:19 07/13/17 04:19 Labs: Laboratory Last Values WBC 3.4 K/mm3 (4.5-11.0) L 07/13/17 04:19 RBC 4.05 M/mm3 (3.65-5.03) 07/13/17 04:19 Hgb 11.2 gm/dl (10.1-14.3) 07/13/17 04:19 Hct 33.8 % (30.3-42.9) 07/13/17 04:19 MCV 83 fl (79-97) 07/13/17 04:19 MCH 28 pg (28-32) 07/13/17 04:19 MCHC 33 % (30-34) 07/13/17 04:19 RDW 16.0 % (13.2-15.2) H 07/13/17 04:19 Plt Count 308 K/mm3 (140-440) 07/13/17 04:19 Lymph % (Auto) 16.3 % (13.4-35.0) 07/12/17 06:27 [place] % (Auto) Clinical Research Technician 07/13/17 04:19 Eos % (Auto) 0.2 % (0.0-4.3) 07/12/17 06:27 Baso % (Auto) 0.4 % (0.0-1.8) 07/12/17 06:27 Lymph # 1.5 K/mm3 (1.2-5.4) 07/12/17 06:27 [place] # 1.0 K/mm3 (0.0-0.8) H 07/12/17 06:27 Eos # 0.0 K/mm3 (0.0-0.4) 07/12/17 06:27 Baso # 0.0 K/mm3 (0.0-0.1) 07/12/17 06:27 Add Manual Diff Complete 07/13/17 04:19 Total Counted 100 07/13/17 04:19 Seg Neutrophils % Clinical Research Technician 07/13/17 04:19 Seg Neuts % (Manual) 31.0 % (40.0-70.0) L 07/13/17 04:19 Band Neutrophils % 0 % 07/13/17 04:19 Lymphocytes % (Manual) 45.0 % (13.4-35.0) H 07/13/17 04:19 Reactive Lymphs % (Man) 0 % 07/13/17 04:19 Monocytes % (Manual) 13.0 % (0.0-7.3) H 07/13/17 04:19 Eosinophils % (Manual) 11.0 % (0.0-4.3) H 07/13/17 04:19 Basophils % (Manual) 0 % (0.0-1.8) 07/13/17 04:19 Metamyelocytes % 0 % 07/13/17 04:19 Myelocytes % 0 % 07/13/17 04:19 Promyelocytes % 0 % 07/13/17 04:19 Blast Cells % 0 % 07/13/17 04:19 Nucleated RBC % Not Reportable 07/13/17 04:19 Seg Neutrophils # 6.7 K/mm3 (1.8-7.7) 07/12/17 06:27 Seg Neutrophils # Man 1.1 K/mm3 (1.8-7.7) L 07/13/17 04:19 Band Neutrophils # 0.0 K/mm3 07/13/17 04:19 Lymphocytes # (Manual) 1.5 K/mm3 (1.2-5.4) 07/13/17 04:19 Abs React Lymphs (Man) 0.0 K/mm3 07/13/17 04:19 Monocytes # (Manual) 0.4 K/mm3 (0.0-0.8) 07/13/17 04:19 Eosinophils # (Manual) 0.4 K/mm3 (0.0-0.4) 07/13/17 04:19 Basophils # (Manual) 0.0 K/mm3 (0.0-0.1) 07/13/17 04:19 Metamyelocytes # 0.0 K/mm3 07/13/17 04:19 Myelocytes # 0.0 K/mm3 07/13/17 04:19 Promyelocytes # 0.0 K/mm3 07/13/17 04:19 Blast Cells # 0.0 K/mm3 07/13/17 04:19 WBC Morphology Not Reportable 07/13/17 04:19 Hypersegmented Neuts Not Reportable 07/13/17 04:19 Hyposegmented Neuts Not Reportable 07/13/17 04:19 Hypogranular Neuts Not Reportable 07/13/17 04:19 Smudge Cells Not Reportable 07/13/17 04:19 Toxic Granulation Not Reportable 07/13/17 04:19 Toxic Vacuolation Not Reportable 07/13/17 04:19 Dohle Bodies Not Reportable 07/13/17 04:19 Pelger-Huet Anomaly Not Reportable 07/13/17 04:19 Gifty Rods Not Reportable 07/13/17 04:19 Platelet Estimate Consistent w auto 07/13/17 04:19 Clumped Platelets Not Reportable 07/13/17 04:19 Plt Clumps, EDTA Not Reportable 07/13/17 04:19 Large Platelets Not Reportable 07/13/17 04:19 Giant Platelets Not Reportable 07/13/17 04:19 Platelet Satelliting Not Reportable 07/13/17 04:19 Plt Morphology Comment Not Reportable 07/13/17 04:19 RBC Morphology Not Reportable 07/13/17 04:19 Dimorphic RBCs Not Reportable 07/13/17 04:19 Polychromasia Not Reportable 07/13/17 04:19 Hypochromasia Not Reportable 07/13/17 04:19 Poikilocytosis Not Reportable 07/13/17 04:19 Anisocytosis Not Reportable 07/13/17 04:19 Microcytosis Not Reportable 07/13/17 04:19 Macrocytosis Not Reportable 07/13/17 04:19 Spherocytes Not Reportable 07/13/17 04:19 Pappenheimer Bodies Not Reportable 07/13/17 04:19 Sickle Cells Not Reportable 07/13/17 04:19 Target Cells Not Reportable 07/13/17 04:19 Tear Drop Cells Not Reportable 07/13/17 04:19 Ovalocytes Not Reportable 07/13/17 04:19 Helmet Cells Not Reportable 07/13/17 04:19 Rg-[place] Bodies Not Reportable 07/13/17 04:19 [place] Rings Not Reportable 07/13/17 04:19 [place] Cells Not Reportable 07/13/17 04:19 Bite Cells Not Reportable 07/13/17 04:19 Crenated Cell Not Reportable 07/13/17 04:19 Elliptocytes Not Reportable 07/13/17 04:19 Acanthocytes (Spur) Not Reportable 07/13/17 04:19 Rouleaux Not Reportable 07/13/17 04:19 Hemoglobin C Crystals Not Reportable 07/13/17 04:19 Schistocytes Not Reportable 07/13/17 04:19 Malaria parasites Not Reportable 07/13/17 04:19 Jimy Bodies Not Reportable 07/13/17 04:19 Hem Pathologist Commnt No 07/13/17 04:19 PT 12.6 Sec. (12.2-14.9) 07/12/17 19:02 INR 0.90 (0.87-1.13) 07/12/17 19:02 APTT 32.8 Sec. (24.2-36.6) 07/12/17 19:02 Sodium 136 mmol/L (137-145) L 07/13/17 04:19 Potassium 4.0 mmol/L (3.6-5.0) 07/13/17 04:19 Chloride 97.4 mmol/L (98-107) L 07/13/17 04:19 Carbon Dioxide 29 mmol/L (22-30) 07/13/17 04:19 Anion Gap 14 mmol/L 07/13/17 04:19 BUN 10 mg/dL (7-17) 07/13/17 04:19 Creatinine 0.5 mg/dL (0.7-1.2) L 07/13/17 04:19 Estimated GFR > 60 ml/min 07/13/17 04:19 BUN/Creatinine Ratio 20 % 07/13/17 04:19 Glucose 82 mg/dL (65-100) 07/13/17 04:19 Calcium 7.7 mg/dL (8.4-10.2) L 07/13/17 04:19 Total Bilirubin 0.20 mg/dL (0.1-1.2) 07/12/17 19:02 Direct Bilirubin < 0.2 mg/dL (0-0.2) 07/12/17 19:02 Indirect Bilirubin 0.0 mg/dL 07/12/17 19:02 AST 21 units/L (5-40) 07/12/17 19:02 ALT 14 units/L (7-56) 07/12/17 19:02 Alkaline Phosphatase 90 units/L (35-129) 07/12/17 19:02 Total Creatine Kinase 142 units/L (30-135) H 07/13/17 04:19 CK-MB (CK-2) 2.1 ng/mL (0.0-4.0) 07/13/17 04:19 CK-MB (CK-2) Rel Index 1.4 (0-4) 07/13/17 04:19 Troponin T < 0.010 ng/mL (0.00-0.029) 07/13/17 04:19 Total Protein 6.6 g/dL (6.3-8.2) 07/12/17 19:02 Albumin 3.4 g/dL (3.9-5) L 07/12/17 19:02 Albumin/Globulin Ratio 1.1 % 07/12/17 19:02 Urine Color Yellow (Yellow) 07/13/17 16:01 Urine Turbidity Clear (Clear) 07/13/17 16:01 Urine pH 8.0 (5.0-7.0) H 07/13/17 16:01 Ur Specific [place] 1.006 (1.003-1.030) 07/13/17 16:01 Urine Protein <15 mg/dl mg/dL (Negative) 07/13/17 16:01 Urine Glucose (UA) Neg mg/dL (Negative) 07/13/17 16:01 Urine Ketones Neg mg/dL (Negative) 07/13/17 16:01 Urine Blood Neg (Negative) 07/13/17 16:01 Urine Nitrite Neg (Negative) 07/13/17 16:01 Urine Bilirubin Neg (Negative) 07/13/17 16:01 Urine Urobilinogen < 2.0 mg/dL (<2.0) 07/13/17 16:01 Ur Leukocyte Esterase Sm (Negative) 07/13/17 16:01 Urine WBC (Auto) 2.0 /HPF (0.0-6.0) 07/13/17 16:01 Urine RBC (Auto) < 1.0 /HPF (0.0-6.0) 07/13/17 16:01 U Epithel Cells (Auto) 2.0 /HPF (0-13.0) 07/13/17 16:01 Salicylates < 0.3 mg/dL (2.8-20.0) L 07/12/17 06:27 Urine Opiates Screen Presumptive negative 07/13/17 16:01 Urine Methadone Screen Presumptive negative 07/13/17 16:01 Acetaminophen < 5.0 ug/mL (10.0-30.0) L 07/12/17 06:27 Ur Barbiturates Screen Presumptive negative 07/13/17 16:01 Ur Phencyclidine Scrn Presumptive negative 07/13/17 16:01 Ur Amphetamines Screen Presumptive negative 07/13/17 16:01 U Benzodiazepines Scrn Presumptive negative 07/13/17 16:01 Urine Cocaine Screen Presumptive negative 07/13/17 16:01 U Marijuana (THC) Screen Presumptive negative 07/13/17 16:01 Drugs of Abuse Note Disclamer 07/13/17 16:01 Plasma/Serum Alcohol < 0.01 % (0-0.07) 07/12/17 06:27
[2017-07-15] MEDS ORDERED: NORCO 5/325 PO PRN (11:45)
--- NOTE | 2017-07-15 13:26 | Progress Note ---
Subjective - Reason for Consult Consult date: 07/15/17 Reason for consult: Psychiatric Follow-up Evaluation Mental Status Exam - Vital signs Last Vital Signs Temp 98.0 F 07/15/17 08:18 Pulse 74 07/15/17 08:18 Resp 20 07/15/17 08:18 BP 118/43 07/15/17 08:18 Pulse Ox 97 07/15/17 08:18 Assessment and Plan At the current time, we would recommend that the patient's home psychiatric medications be reconciled and reinitiated.
[2017-07-15] MEDS: NORCO 5/325 PO PRN (17:58)
[2017-07-15] MEDS: AMBIEN PO PRN (22:38)
[2017-07-16] MEDS: VANCOMYCIN/0.45 NS 1 GM/250 ML 1 GM/250 ML BAG IV SCH ×3 (03:39→18:22)
[2017-07-16] MEDS: NORCO 5/325 PO PRN ×2 (03:40→08:46)
[2017-07-16] MEDS: SODIUM CHLORIDE FLUSH SYRINGE 10 ML IV SCH ×2 (10:05→21:37)
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
[2017-07-16] MEDS: NORCO 10/325 PO PRN ×2 (13:31→20:04)
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
[2017-07-16] MEDS: AMBIEN PO PRN (21:37)
[2017-07-16] MEDS ORDERED: BENADRYL PO ONE (23:33)
[2017-07-16] MEDS: HEPARIN SUB-Q SCH (23:45)
[2017-07-17] MEDS: VANCOMYCIN/0.45 NS 1 GM/250 ML 1 GM/250 ML BAG IV SCH (04:15)
[2017-07-17] MEDS: NORCO 10/325 PO PRN (05:38)
[2017-07-17] MEDS: HEPARIN SUB-Q SCH (05:38)
[2017-07-17 07:14] VITALS: BP 105/45
[2017-07-17] MEDS: SODIUM CHLORIDE FLUSH SYRINGE 10 ML IV SCH (09:45)
--- NOTE | 2017-07-17 10:32 | Progress Note ---
Subjective - Reason for Consult Consult date: 07/17/17 Reason for consult: Psychiatry Follow-up - Chief Complaint Chief complaint: 47 y.o. white female presenting to [facility] for chest pain. This patient is known to me. Today the patient is calm and cooperative during the assessment. She stated that she look forward to being discharged soon and attending rehab services for substance abuse. She denies SI/HI's and AVH's. Mental Status Exam - Vital signs Last Vital Signs Temp 98.8 F 07/17/17 07:09 Pulse 62 07/17/17 07:09 Resp 16 07/17/17 07:09 BP 105/45 07/17/17 07:09 Pulse Ox 98 07/17/17 07:09 - Exam Narrative exam: MSE: Appearance: calm, cooperative Behavior: regular eye contact Speech: regular rate and tone Mood: "okay" Affect: normal Thought Process: linear Thought Content: denies SI/HI's and AVH's Motor Activity: sitting up in bed Cognition: A/O x3 Insight: appropriate Judgment: appropriate Assessment and Plan Impression: Hx of Depression and Substance Abuse. Today the patient is calm and cooperative during the assessment. The patient is no threat to self. Recommendation/Plan: The patient can follow up with [facility] for rehab/ outpatient psy services. Psychiatry sign off.
--- NOTE | 2017-07-17 14:46 | Discharge Summary ---
Providers - Providers Date of Admission: 07/12/17 21:08 Attending physician: MAKAYLA RHODES 07/13/17 00:12 psychiatry consult [Consult to Mental Health] [CONS] Routine Reason For Exam: SI Place consult to:: psych Notified:: y Was contact made?: Yes 07/13/17 13:24 Consult to Wound/ET Nurse [CONS] Routine Reason For Exam: wound eval 07/16/17 12:27 Consult to Physician [CONS] Routine Comment: Consulting Provider: ANGELES SUMMERS Physician Instructions: Reason For Exam: MRSA left leg wound Primary care physician: MAKAYLA SLOAN Hospitalization Condition: Stable Disposition: DC-07 LEFT AGAINST MED ADVICE - Discharge Diagnoses (1) Left against medical advice Status: Acute Exam - Constitutional Vitals: Temp Pulse Resp BP Pulse Ox 98.8 F 62 16 105/45 98 07/17/17 07:09 07/17/17 07:09 07/17/17 07:09 07/17/17 07:09 07/17/17 07:09 Plan Follow up with: MAKAYLA SLOAN MD [Primary Care Provider] - 3-5 Days
== END 2017-07-17 12:00 | disposition left against medical advice (07) | DRG 303 ==
LOC: ED 00:31 → 4A 21:08 → 3A 07-15 17:23
PROVIDERS: ADMIT Internal Medicine; ATTEND Internal Medicine
DX: I25.110 Atherosclerotic heart disease of native coronary artery with unstable angina pectoris (principal); L03.116 Cellulitis of left lower limb; R45.851 Suicidal ideations; Z53.21 Procedure and treatment not carried out due to patient leaving prior to being seen by health care provider; E11.9 Type 2 diabetes mellitus without complications; F32.9 Major depressive disorder, single episode, unspecified; F20.9 Schizophrenia, unspecified; F17.200 Nicotine dependence, unspecified, uncomplicated; F12.90 Cannabis use, unspecified, uncomplicated; Z79.899 Other long term (current) drug therapy; Z95.5 Presence of coronary angioplasty implant and graft; Z82.49 Family history of ischemic heart disease and other diseases of the circulatory system; Z86.14 Personal history of Methicillin resistant Staphylococcus aureus infection
CPT/HCPCS: 36415; 71045; 78452; 80048; 80074; 80202; 80307; 80320; 81001; 82550; 82553; 84484; 85007; 85025; 85610; 85730; 86140; 87040; 87076; 87116; 87186; 93005; 93010; 93017; 96374; 99406; A9502; G0480; J1644; J1956; J2270; J2405; J2785; J3370; J7050

== ENCOUNTER 2017-07-30 20:32 | Emergency (ER) | payer SELFPAY | END 2017-07-30 20:33 | disposition left against medical advice (07) | LOC: ED 20:32 | DX: R50.9 Fever, unspecified (principal); Z53.21 Procedure and treatment not carried out due to patient leaving prior to being seen by health care provider ==

== ENCOUNTER 2017-08-03 17:16 | Emergency (ER) | payer SELFPAY | END 2017-08-03 17:42 | disposition left against medical advice (07) | LOC: ED 17:16 | DX: M86.9 Osteomyelitis, unspecified (principal); Z53.21 Procedure and treatment not carried out due to patient leaving prior to being seen by health care provider ==

== ENCOUNTER 2017-08-03 22:12 | Emergency (ER) | payer OTHER ==
[2017-08-03] MEDS ORDERED: TORADOL IM ONE (23:30)
[2017-08-03] MEDS ORDERED: BACTRIM DS PO ONE (23:31)
--- NOTE | 2017-08-03 23:56 | Emergency Department Report ---
ED Psych HPI - General Chief Complaint: Psych Stated Complaint: ABSCESS TO LT LEG Time Seen by Provider: 08/03/17 23:24 Source: patient Mode of arrival: Ambulatory Limitations: No Limitations - History of Present Illness Initial Comments: 47-year-old female with a past medical history of schizophrenia, depression, elevated cholesterol, and left leg surgery presents to the Hospital complains of left leg infection, fever, and suicidal ideation. Patient states she has a history of MRSA infection in the left leg in the past. Patient complains of moderate to severe left leg pain that increases with ambulation. Other past month she has had increased pain to the left leg and reports having a fever for the past 3 days. MAXIMUM TEMPERATURE 101.5 and patient took Tylenol. Patient' s been feeling suicidal 1 month since being off her Effexor. Lantus overdose on pills or hang herself. Her primary orthopedic surgeon is affiliated with [facility] with last follow-up visit several months ago - Related Data Home Medications Medication Instructions Recorded Confirmed Last Taken hydrOXYzine PAMOATE [Vistaril] 100 mg PO BID 11/14/16 07/13/17 2 Weeks Ago ~06/29/17 risperiDONE [RisperDAL] 2 mg PO QHS 11/14/16 07/13/17 2 Weeks Ago ~06/29/17 Previous Rx's Medication Instructions Recorded Last Taken Type Sulfamethoxazole/Trimethoprim 1 each PO BID #14 tablet 11/16/16 2 Weeks Ago Rx [Bactrim DS TAB] ~06/29/17 Allergies Allergy/AdvReac Type Severity Reaction Status Date / Time egg AdvReac Itching Verified 07/14/17 08:45 ED Review of Systems ROS: Stated complaint: ABSCESS TO LT LEG Other details as noted in HPI Comment: All other systems reviewed and negative ED Past Medical Hx - Past Medical History Previous Medical History?: Yes Hx Heart Attack/AMI: Yes (pt stated) Hx Congestive Heart Failure: No Hx Diabetes: Yes (gestational) Hx Seizures: Yes Hx Psychiatric Treatment: Yes (depression / schizophrenia) Hx Asthma: No Additional medical history: High cholesterol - Surgical History Past Surgical History?: Yes Hx Coronary Stent: Yes (patient states) Hx Breast Surgery: Yes (breast augmentation) Additional Surgical History: left leg surgery. x 2 - Social History Smoking Status: Current Every Day Smoker - Medications Home Medications: Home Medications Medication Instructions Recorded Confirmed Last Taken Type hydrOXYzine PAMOATE [Vistaril] 100 mg PO BID 11/14/16 07/13/17 2 Weeks Ago History ~06/29/17 risperiDONE [RisperDAL] 2 mg PO QHS 11/14/16 07/13/17 2 Weeks Ago History ~06/29/17 Sulfamethoxazole/Trimethoprim 1 each PO BID #14 tablet 11/16/16 07/13/17 2 Weeks Ago Rx [Bactrim DS TAB] ~06/29/17 ED Physical Exam - General Limitations: No Limitations - Other Other exam information: General: No limitations, patient is alert in no acute distress Head exam: Atraumatic, normocephalic Eyes exam: Normal appearance ENT: Moist mucous membrane, normal oropharynx Neck exam: Normal inspection, full range of motion, no meningismus nontender Respiratory exam: Clear to auscultation bilateral, no wheezes, rales, crackles Cardiovascular: Normal rate and rhythm, normal heart sounds Abdomen: Soft, nondistended, and nontender, with normal bowel sounds, no rebound, or guarding Extremity: Full range of motion normal inspection no deformity Back: Normal Inspection, full range of motion, no tenderness Neurologic: Alert, oriented x3, cranial nerves intact, no motor or sensory deficit Psychiatric: normal affect, normal mood Skin: Left mid anterior tibia sore with a yellow crusted. Measuring 1 cm in diameter and surrounding erythema measuring 3 cm in diameter. Tenderness to palpation. No purulent discharge noted on exam. No leg or foot swelling. 2+ DP pulse ED Course Vital Signs 08/03/17 08/03/17 08/03/17 22:59 23:30 23:50 Temperature 97.7 F 97.8 F Pulse Rate 95 H 77 Respiratory 17 16 16 Rate Blood Pressure 121/64 Blood Pressure 115/58 [Left] O2 Sat by Pulse 98 Oximetry 08/04/17 08/04/17 00:20 01:18 Temperature 98.1 F Pulse Rate 82 Respiratory 16 16 Rate Blood Pressure Blood Pressure 115/95 [Left] O2 Sat by Pulse 98 Oximetry ED Medical Decision Making - Lab Data Result diagrams: 08/03/17 23:35 08/03/17 23:35 Lab Results 08/03/17 08/03/17 08/03/17 Range/Units 23:35 23:35 23:35 WBC (4.5-11.0) K/mm3 RBC (3.65-5.03) M/mm3 Hgb (10.1-14.3) gm/dl Hct (30.3-42.9) % MCV (79-97) fl MCH (28-32) pg MCHC (30-34) % RDW (13.2-15.2) % Plt Count (140-440) K/mm3 Lymph % (Auto) (13.4-35.0) % [place] % (Auto) (0.0-7.3) % Eos % (Auto) (0.0-4.3) % Baso % (Auto) (0.0-1.8) % Lymph # (1.2-5.4) K/mm3 [place] # (0.0-0.8) K/mm3 Eos # (0.0-0.4) K/mm3 Baso # (0.0-0.1) K/mm3 Seg Neutrophils % (40.0-70.0) % Seg Neutrophils # (1.8-7.7) K/mm3 ESR (0-20) mm/Hr Sodium 140 (137-145) mmol/L Potassium 3.7 (3.6-5.0) mmol/L Chloride 100.4 (98-107) mmol/L Carbon Dioxide 24 (22-30) mmol/L Anion Gap 19 mmol/L BUN 7 (7-17) mg/dL Creatinine 0.5 L (0.7-1.2) mg/dL Estimated GFR > 60 ml/min BUN/Creatinine Ratio 14 % Glucose 100 (65-100) mg/dL Calcium 8.4 (8.4-10.2) mg/dL Total Creatine Kinase (30-135) units/L HCG, Qual (Negative) Urine Color (Yellow) Urine Turbidity (Clear) Urine pH (5.0-7.0) Ur Specific [place] (1.003-1.030) Urine Protein (Negative) mg/dL Urine Glucose (UA) (Negative) mg/dL Urine Ketones (Negative) mg/dL Urine Blood (Negative) Urine Nitrite (Negative) Urine Bilirubin (Negative) Urine Urobilinogen (<2.0) mg/dL Ur Leukocyte Esterase (Negative) Urine WBC (Auto) (0.0-6.0) /HPF Urine RBC (Auto) (0.0-6.0) /HPF U Epithel Cells (Auto) (0-13.0) /HPF Urine Mucus /HPF Salicylates < 0.3 L (2.8-20.0) mg/dL Urine Opiates Screen Urine Methadone Screen Acetaminophen < 5.0 L (10.0-30.0) ug/mL Ur Barbiturates Screen Ur Phencyclidine Scrn Ur Amphetamines Screen U Benzodiazepines Scrn Urine Cocaine Screen U Marijuana (THC) Screen Drugs of Abuse Note Plasma/Serum Alcohol (0-0.07) % 08/03/17 08/03/17 08/03/17 Range/Units 23:35 23:35 23:35 WBC 4.1 L (4.5-11.0) K/mm3 RBC 3.81 (3.65-5.03) M/mm3 Hgb 10.3 (10.1-14.3) gm/dl Hct 31.8 (30.3-42.9) % MCV 84 (79-97) fl MCH 27 L (28-32) pg MCHC 32 (30-34) % RDW 17.5 H (13.2-15.2) % Plt Count 347 (140-440) K/mm3 Lymph % (Auto) 39.1 H (13.4-35.0) % [place] % (Auto) 11.1 H (0.0-7.3) % Eos % (Auto) 4.5 H (0.0-4.3) % Baso % (Auto) 1.1 (0.0-1.8) % Lymph # 1.6 (1.2-5.4) K/mm3 [place] # 0.4 (0.0-0.8) K/mm3 Eos # 0.2 (0.0-0.4) K/mm3 Baso # 0.0 (0.0-0.1) K/mm3 Seg Neutrophils % 44.2 (40.0-70.0) % Seg Neutrophils # 1.8 (1.8-7.7) K/mm3 ESR (0-20) mm/Hr Sodium (137-145) mmol/L Potassium (3.6-5.0) mmol/L Chloride (98-107) mmol/L Carbon Dioxide (22-30) mmol/L Anion Gap mmol/L BUN (7-17) mg/dL Creatinine (0.7-1.2) mg/dL Estimated GFR ml/min BUN/Creatinine Ratio % Glucose (65-100) mg/dL Calcium (8.4-10.2) mg/dL Total Creatine Kinase (30-135) units/L HCG, Qual Negative (Negative) Urine Color (Yellow) Urine Turbidity (Clear) Urine pH (5.0-7.0) Ur Specific [place] (1.003-1.030) Urine Protein (Negative) mg/dL Urine Glucose (UA) (Negative) mg/dL Urine Ketones (Negative) mg/dL Urine Blood (Negative) Urine Nitrite (Negative) Urine Bilirubin (Negative) Urine Urobilinogen (<2.0) mg/dL Ur Leukocyte Esterase (Negative) Urine WBC (Auto) (0.0-6.0) /HPF Urine RBC (Auto) (0.0-6.0) /HPF U Epithel Cells (Auto) (0-13.0) /HPF Urine Mucus /HPF Salicylates (2.8-20.0) mg/dL Urine Opiates Screen Urine Methadone Screen Acetaminophen (10.0-30.0) ug/mL Ur Barbiturates Screen Ur Phencyclidine Scrn Ur Amphetamines Screen U Benzodiazepines Scrn Urine Cocaine Screen U Marijuana (THC) Screen Drugs of Abuse Note Plasma/Serum Alcohol 0.01 (0-0.07) % 08/03/17 08/03/17 08/04/17 Range/Units 23:51 23:51 01:10 WBC (4.5-11.0) K/mm3 RBC (3.65-5.03) M/mm3 Hgb (10.1-14.3) gm/dl Hct (30.3-42.9) % MCV (79-97) fl MCH (28-32) pg MCHC (30-34) % RDW (13.2-15.2) % Plt Count (140-440) K/mm3 Lymph % (Auto) (13.4-35.0) % [place] % (Auto) (0.0-7.3) % Eos % (Auto) (0.0-4.3) % Baso % (Auto) (0.0-1.8) % Lymph # (1.2-5.4) K/mm3 [place] # (0.0-0.8) K/mm3 Eos # (0.0-0.4) K/mm3 Baso # (0.0-0.1) K/mm3 Seg Neutrophils % (40.0-70.0) % Seg Neutrophils # (1.8-7.7) K/mm3 ESR 17 (0-20) mm/Hr Sodium (137-145) mmol/L Potassium (3.6-5.0) mmol/L Chloride (98-107) mmol/L Carbon Dioxide (22-30) mmol/L Anion Gap mmol/L BUN (7-17) mg/dL Creatinine (0.7-1.2) mg/dL Estimated GFR ml/min BUN/Creatinine Ratio % Glucose (65-100) mg/dL Calcium (8.4-10.2) mg/dL Total Creatine Kinase (30-135) units/L HCG, Qual (Negative) Urine Color Yellow (Yellow) Urine Turbidity Clear (Clear) Urine pH 6.0 (5.0-7.0) Ur Specific [place] 1.013 (1.003-1.030) Urine Protein <15 mg/dl (Negative) mg/dL Urine Glucose (UA) Neg (Negative) mg/dL Urine Ketones Neg (Negative) mg/dL Urine Blood Neg (Negative) Urine Nitrite Neg (Negative) Urine Bilirubin Neg (Negative) Urine Urobilinogen 2.0 (<2.0) mg/dL Ur Leukocyte Esterase Sm (Negative) Urine WBC (Auto) 4.0 (0.0-6.0) /HPF Urine RBC (Auto) 4.0 (0.0-6.0) /HPF U Epithel Cells (Auto) 2.0 (0-13.0) /HPF Urine Mucus 1+ /HPF Salicylates (2.8-20.0) mg/dL Urine Opiates Screen Presumptive negative Urine Methadone Screen Presumptive negative Acetaminophen (10.0-30.0) ug/mL Ur Barbiturates Screen Presumptive negative Ur Phencyclidine Scrn Presumptive negative Ur Amphetamines Screen Presumptive positive U Benzodiazepines Scrn Presumptive negative Urine Cocaine Screen Presumptive negative U Marijuana (THC) Screen Presumptive negative Drugs of Abuse Note Disclamer Plasma/Serum Alcohol (0-0.07) % 08/04/17 Range/Units 01:49 WBC (4.5-11.0) K/mm3 RBC (3.65-5.03) M/mm3 Hgb (10.1-14.3) gm/dl Hct (30.3-42.9) % MCV (79-97) fl MCH (28-32) pg MCHC (30-34) % RDW (13.2-15.2) % Plt Count (140-440) K/mm3 Lymph % (Auto) (13.4-35.0) % [place] % (Auto) (0.0-7.3) % Eos % (Auto) (0.0-4.3) % Baso % (Auto) (0.0-1.8) % Lymph # (1.2-5.4) K/mm3 [place] # (0.0-0.8) K/mm3 Eos # (0.0-0.4) K/mm3 Baso # (0.0-0.1) K/mm3 Seg Neutrophils % (40.0-70.0) % Seg Neutrophils # (1.8-7.7) K/mm3 ESR (0-20) mm/Hr Sodium (137-145) mmol/L Potassium (3.6-5.0) mmol/L Chloride (98-107) mmol/L Carbon Dioxide (22-30) mmol/L Anion Gap mmol/L BUN (7-17) mg/dL Creatinine (0.7-1.2) mg/dL Estimated GFR ml/min BUN/Creatinine Ratio % Glucose (65-100) mg/dL Calcium (8.4-10.2) mg/dL Total Creatine Kinase 243 H (30-135) units/L HCG, Qual (Negative) Urine Color (Yellow) Urine Turbidity (Clear) Urine pH (5.0-7.0) Ur Specific [place] (1.003-1.030) Urine Protein (Negative) mg/dL Urine Glucose (UA) (Negative) mg/dL Urine Ketones (Negative) mg/dL Urine Blood (Negative) Urine Nitrite (Negative) Urine Bilirubin (Negative) Urine Urobilinogen (<2.0) mg/dL Ur Leukocyte Esterase (Negative) Urine WBC (Auto) (0.0-6.0) /HPF Urine RBC (Auto) (0.0-6.0) /HPF U Epithel Cells (Auto) (0-13.0) /HPF Urine Mucus /HPF Salicylates (2.8-20.0) mg/dL Urine Opiates Screen Urine Methadone Screen Acetaminophen (10.0-30.0) ug/mL Ur Barbiturates Screen Ur Phencyclidine Scrn Ur Amphetamines Screen U Benzodiazepines Scrn Urine Cocaine Screen U Marijuana (THC) Screen Drugs of Abuse Note Plasma/Serum Alcohol (0-0.07) % - Radiology Data Radiology results: report reviewed left tib/fib xray: old fractures, no acute findings - Medical Decision Making Patient does not have elevated white count or elevated ESR to indicate severe infection or osteomyelitis. Patient be treated for skin infection with Bactrim although wound is likely chronic. No documented fever. Positive methamphetamine abuse without signs of rhabdomyolysis. Patient is medically cleared for psychiatric admission. 1013 and transfer form signed. - Differential Diagnosis abscesses/cellulitis, suicidal, depression and schizophrenia Critical Care Time: No Critical care attestation.: If time is entered above; I have spent that time in minutes in the direct care of this critically ill patient, excluding procedure time. ED Disposition Clinical Impression: Suicidal ideation, Methamphetamine abuse, Schizoaffective disorder, Medical clearance for psychiatric admission Cellulitis Qualifiers: Site of cellulitis of extremity: lower extremity Laterality: left Disposition: DC/TX-65 PSY HOSP/PSY UNIT Is pt being admited?: No Condition: Stable Time of Disposition: 03:44 (awaiting acceptance)
[2017-08-03 23:59] LABS: Basophils % (Auto) 1.1 % (0.0-1.8); Eosinophils # (Auto) 0.2 K/mm3 (0.0-0.4); Eosinophils % (Auto) 4.5 % (0.0-4.3); Hematocrit 31.8 % (30.3-42.9); Hemoglobin 10.3 gm/dl (10.1-14.3); Lymphocytes # (Auto) 1.6 K/mm3 (1.2-5.4); Lymphocytes % (Auto) 39.1 % (13.4-35.0); Mean Corpuscular HGB Conc 32 % (30-34); Mean Corpuscular Hemoglobin 27 pg (28-32); Mean Corpuscular Volume 84 fl (79-97); Monocytes # (Auto) 0.4 K/mm3 (0.0-0.8); Monocytes % (Auto) 11.1 % (0.0-7.3); Platelet Count 347 K/mm3 (140-440); Red Blood Count 3.81 M/mm3 (3.65-5.03); Red Cell Distribution Width 17.5 % (13.2-15.2)
--- NOTE | 2017-08-04 | XRay Report ---
FINAL REPORT PROCEDURE: Left tibia and fibula. TECHNIQUE: AP and lateral views. HISTORY: pain, hx of surgery and mrsa of left tib fib COMPARISON: No prior studies are available for comparison. FINDINGS: There are old fractures of the distal diaphyses of the tibia and fibula. There is a fractured prosthetic device located within the marrow of the distal tibia. There are no acute fractures identified. The joint spaces appear satisfactory. The soft tissues are unremarkable. IMPRESSION: Old fractures of the tibia and fibula.
[2017-08-04 00:08] LABS: BUN/Creatinine Ratio 14; Blood Urea Nitrogen 7 mg/dL (7-17); Calcium 8.4 mg/dL (8.4-10.2); Hemolysis Index 49
[2017-08-04 00:16] LABS: Bilirubin,Urine NEG (Negative); Blood,Urine NEG (Negative); Color,Urine Yellow (Yellow); Mucus,Urine 1+ /HPF; Protein,Urine <15 mg/dL mg/dL (Negative)
[2017-08-04 00:24] LABS: Benzodiazepines Screen,Urine PRESUMPTIVE NEGATIVE; Cannabinoid Screen,Urine PRESUMPTIVE NEGATIVE; Cocaine Screen,Urine PRESUMPTIVE NEGATIVE; Methadone Screen,Urine PRESUMPTIVE NEGATIVE; Opiate Screen,Urine PRESUMPTIVE NEGATIVE
[2017-08-04 00:29] LABS: Amphetamine Screen,Urine PRESUMPTIVE POSITIVE
[2017-08-04] MEDS ORDERED: MOTRIN PO PRN (03:49)
[2017-08-04] MEDS: BACTRIM DS PO SCH ×2 (10:55→22:44)
--- NOTE | 2017-08-04 13:25 | Consultation ---
History of Present Illness - Reason for Consult Consult date: 08/04/17 Reason for consult: Mental Health Evaluation Requesting physician: JOSEPH WELCH - Chief Complaint Chief complaint: "I don't want to talk" - History of Present Psychiatric Illness 47-year-old female with a past medical history of depression, elevated cholesterol, and left leg surgery presenting with left leg infection, fever, and suicidal ideation. This patient is known to me. Today she refuses to talk during the interview. Medications and Allergies Allergies Allergy/AdvReac Type Severity Reaction Status Date / Time egg AdvReac Itching Verified 07/14/17 08:45 Home Medications Medication Instructions Recorded Confirmed Last Taken Type hydrOXYzine PAMOATE [Vistaril] 100 mg PO BID 11/14/16 07/13/17 2 Weeks Ago History ~06/29/17 risperiDONE [RisperDAL] 2 mg PO QHS 11/14/16 07/13/17 2 Weeks Ago History ~06/29/17 Sulfamethoxazole/Trimethoprim 1 each PO BID #14 tablet 11/16/16 07/13/17 2 Weeks Ago Rx [Bactrim DS TAB] ~06/29/17 Active Meds: Active Medications Ibuprofen (Motrin) 800 mg PO Q8HR PRN PRN Reason: Pain Trimethoprim/Sulfamethoxazole (Bactrim Ds) 1 each PO Q12HR MIKE Stop: 08/13/17 10:01 Last Admin: 08/04/17 10:55 Dose: 1 each Past psychiatric history - Past Medical History Past Medical History: other (Hx of MRSA) Past Surgical History: Other (Left leg surgery) - past Psychiatric treatment and history psychiatric treatment history: Hx of depression and substance abuse. Unable to obtain a fam psy hx. - Social History Social history: other (Unable to obtain) Mental Status Exam - Vital signs Last Vital Signs Temp 98.4 F 08/04/17 10:00 Pulse 92 H 08/04/17 10:00 Resp 16 08/04/17 10:00 BP 119/65 08/04/17 10:00 Pulse Ox 100 08/04/17 10:00 - Exam Narrative exam: Unable to complete the MSE because the patient refuses to cooperate. Results Result Diagrams: 08/03/17 23:35 08/03/17 23:35 Abnormal lab results 08/03/17 08/03/17 08/03/17 Range/Units 23:35 23:35 23:35 WBC (4.5-11.0) K/mm3 MCH (28-32) pg RDW (13.2-15.2) % Lymph % (Auto) (13.4-35.0) % [place] % (Auto) (0.0-7.3) % Eos % (Auto) (0.0-4.3) % Creatinine 0.5 L (0.7-1.2) mg/dL Total Creatine Kinase (30-135) units/L Salicylates < 0.3 L (2.8-20.0) mg/dL Acetaminophen < 5.0 L (10.0-30.0) ug/mL 08/03/17 08/04/17 Range/Units 23:35 01:49 WBC 4.1 L (4.5-11.0) K/mm3 MCH 27 L (28-32) pg RDW 17.5 H (13.2-15.2) % Lymph % (Auto) 39.1 H (13.4-35.0) % [place] % (Auto) 11.1 H (0.0-7.3) % Eos % (Auto) 4.5 H (0.0-4.3) % Creatinine (0.7-1.2) mg/dL Total Creatine Kinase 243 H (30-135) units/L Salicylates (2.8-20.0) mg/dL Acetaminophen (10.0-30.0) ug/mL All other labs normal. Assessment and Plan Assessment and plan: Impression: Hx of Depression and Substance Use DO. Today she refuses to talk during the interview. The patient is positive for amphetamines. Recommendation/Plan: Continue 1013 and follow up in 24 to attempt to assess the patient.
[2017-08-05 08:25] VITALS: BP 118/54
[2017-08-05] MEDS: BACTRIM DS PO SCH (09:00)
--- NOTE | 2017-08-05 15:35 | Progress Note ---
Subjective - Reason for Consult Reason for consult: recent expression of SI - Chief Complaint Chief complaint: Subjectively: Patient acutely denies suicidal thoughts or homicidal thoughts. No psychosis noted. No ho noted. Patient appears future oriented with goal-directed thinking. She continues to worry about her infection on her leg; otherwise, patient is not presenting with acute mood disorder and is not at acute risk of harm to self or others. Mental status examination: dressed in hospital gown, calm cooperative, no motor abnormalities, euthymic appropriate, normal rate tone, organize reality oriented, no SI or HI no AVH, insight judgment limited but chronically impaired, ADLs fair Plan: - Rescind 1013 - Follow up with her IOP provider in [place], [place] Mental Status Exam - Vital signs Last Vital Signs Temp 98.4 F 08/04/17 20:35 Pulse 75 08/05/17 08:10 Resp 16 08/05/17 08:10 BP 118/54 08/05/17 08:10 Pulse Ox 98 08/05/17 08:10
--- NOTE | 2017-08-05 16:48 | Emergency Department Report ---
Chief Complaint: Psych Stated Complaint: ABSCESS TO LT LEG Time Seen by Provider: 08/03/17 23:24 - Exam Vital Signs: Vital Signs 08/03/17 08/03/17 08/03/17 22:59 23:30 23:50 Temperature 97.7 F 97.8 F Pulse Rate 95 H 77 Respiratory 17 16 16 Rate Blood Pressure 121/64 Blood Pressure 115/58 [Left] O2 Sat by Pulse 98 Oximetry 08/04/17 08/04/17 08/04/17 00:20 01:18 10:00 Temperature 98.1 F 98.4 F Pulse Rate 82 92 H Respiratory 16 16 16 Rate Blood Pressure Blood Pressure 115/95 119/65 [Left] O2 Sat by Pulse 98 98 Oximetry 08/04/17 08/05/17 20:35 08:10 Temperature 98.4 F Pulse Rate 90 75 Respiratory 16 Rate Blood Pressure Blood Pressure 110/43 118/54 [Left] O2 Sat by Pulse 98 Oximetry MSE screening note: Focused history and physical exam performed. Due to findings the following was ordered: ED Medical Decision Making - Lab Data Result diagrams: 08/03/17 23:35 08/03/17 23:35 Laboratory Tests 08/03/17 08/03/17 08/03/17 23:35 23:35 23:35 WBC RBC Hgb Hct MCV MCH MCHC RDW Plt Count Lymph % (Auto) [place] % (Auto) Eos % (Auto) Baso % (Auto) Lymph # [place] # Eos # Baso # Seg Neutrophils % Seg Neutrophils # ESR Sodium 140 Potassium 3.7 Chloride 100.4 Carbon Dioxide 24 Anion Gap 19 BUN 7 Creatinine 0.5 L Estimated GFR > 60 BUN/Creatinine Ratio 14 Glucose 100 Calcium 8.4 Total Creatine Kinase HCG, Qual Urine Color Urine Turbidity Urine pH Ur Specific [place] Urine Protein Urine Glucose (UA) Urine Ketones Urine Blood Urine Nitrite Urine Bilirubin Urine Urobilinogen Ur Leukocyte Esterase Urine WBC (Auto) Urine RBC (Auto) U Epithel Cells (Auto) Urine Mucus Salicylates < 0.3 L Urine Opiates Screen Urine Methadone Screen Acetaminophen < 5.0 L Ur Barbiturates Screen Ur Phencyclidine Scrn Ur Amphetamines Screen U Benzodiazepines Scrn Urine Cocaine Screen U Marijuana (THC) Screen Drugs of Abuse Note Plasma/Serum Alcohol 08/03/17 08/03/17 08/03/17 23:35 23:35 23:35 WBC 4.1 L RBC 3.81 Hgb 10.3 Hct 31.8 MCV 84 MCH 27 L MCHC 32 RDW 17.5 H Plt Count 347 Lymph % (Auto) 39.1 H [place] % (Auto) 11.1 H Eos % (Auto) 4.5 H Baso % (Auto) 1.1 Lymph # 1.6 [place] # 0.4 Eos # 0.2 Baso # 0.0 Seg Neutrophils % 44.2 Seg Neutrophils # 1.8 ESR Sodium Potassium Chloride Carbon Dioxide Anion Gap BUN Creatinine Estimated GFR BUN/Creatinine Ratio Glucose Calcium Total Creatine Kinase HCG, Qual Negative Urine Color Urine Turbidity Urine pH Ur Specific [place] Urine Protein Urine Glucose (UA) Urine Ketones Urine Blood Urine Nitrite Urine Bilirubin Urine Urobilinogen Ur Leukocyte Esterase Urine WBC (Auto) Urine RBC (Auto) U Epithel Cells (Auto) Urine Mucus Salicylates Urine Opiates Screen Urine Methadone Screen Acetaminophen Ur Barbiturates Screen Ur Phencyclidine Scrn Ur Amphetamines Screen U Benzodiazepines Scrn Urine Cocaine Screen U Marijuana (THC) Screen Drugs of Abuse Note Plasma/Serum Alcohol 0.01 08/03/17 08/03/17 08/04/17 23:51 23:51 01:10 WBC RBC Hgb Hct MCV MCH MCHC RDW Plt Count Lymph % (Auto) [place] % (Auto) Eos % (Auto) Baso % (Auto) Lymph # [place] # Eos # Baso # Seg Neutrophils % Seg Neutrophils # ESR 17 Sodium Potassium Chloride Carbon Dioxide Anion Gap BUN Creatinine Estimated GFR BUN/Creatinine Ratio Glucose Calcium Total Creatine Kinase HCG, Qual Urine Color Yellow Urine Turbidity Clear Urine pH 6.0 Ur Specific [place] 1.013 Urine Protein <15 mg/dl Urine Glucose (UA) Neg Urine Ketones Neg Urine Blood Neg Urine Nitrite Neg Urine Bilirubin Neg Urine Urobilinogen 2.0 Ur Leukocyte Esterase Sm Urine WBC (Auto) 4.0 Urine RBC (Auto) 4.0 U Epithel Cells (Auto) 2.0 Urine Mucus 1+ Salicylates Urine Opiates Screen Presumptive negative Urine Methadone Screen Presumptive negative Acetaminophen Ur Barbiturates Screen Presumptive negative Ur Phencyclidine Scrn Presumptive negative Ur Amphetamines Screen Presumptive positive U Benzodiazepines Scrn Presumptive negative Urine Cocaine Screen Presumptive negative U Marijuana (THC) Screen Presumptive negative Drugs of Abuse Note Disclamer Plasma/Serum Alcohol 08/04/17 01:49 WBC RBC Hgb Hct MCV MCH MCHC RDW Plt Count Lymph % (Auto) [place] % (Auto) Eos % (Auto) Baso % (Auto) Lymph # [place] # Eos # Baso # Seg Neutrophils % Seg Neutrophils # ESR Sodium Potassium Chloride Carbon Dioxide Anion Gap BUN Creatinine Estimated GFR BUN/Creatinine Ratio Glucose Calcium Total Creatine Kinase 243 H HCG, Qual Urine Color Urine Turbidity Urine pH Ur Specific [place] Urine Protein Urine Glucose (UA) Urine Ketones Urine Blood Urine Nitrite Urine Bilirubin Urine Urobilinogen Ur Leukocyte Esterase Urine WBC (Auto) Urine RBC (Auto) U Epithel Cells (Auto) Urine Mucus Salicylates Urine Opiates Screen Urine Methadone Screen Acetaminophen Ur Barbiturates Screen Ur Phencyclidine Scrn Ur Amphetamines Screen U Benzodiazepines Scrn Urine Cocaine Screen U Marijuana (THC) Screen Drugs of Abuse Note Plasma/Serum Alcohol Vital Signs - 24 hr 08/04/17 08/05/17 20:35 08:10 Temperature 98.4 F Pulse Rate 90 75 Respiratory 16 Rate Blood Pressure 110/43 118/54 [Left] O2 Sat by Pulse 98 Oximetry - Medical Decision Making I spoke with Ms. Moeller. She is currently awake alert and cooperative. She denies suicidal ideation. She was evaluated by our psychiatrist who rescinded 1013. I reviewed psychiatrist note. Outpatient resources were provided. Reviewed vital signs which are stable. Reviewed labs. She is appropriate and stable for discharge. ED Disposition for MSE Clinical Impression: Suicidal ideation, Methamphetamine abuse, Schizoaffective disorder, Medical clearance for psychiatric admission Cellulitis Qualifiers: Site of cellulitis of extremity: lower extremity Laterality: left Disposition: DC-01 TO HOME OR SELFCARE Is pt being admited?: No Does the pt Need Aspirin: No Condition: Stable Instructions: Methamphetamine Abuse (ED) Time of Disposition: 16:49
== END 2017-08-05 17:37 | disposition home or self-care (01) ==
LOC: ED 22:12 → EEVIPCON 22:12 → ED 08-05 17:37
DX: L03.116 Cellulitis of left lower limb (principal); R45.851 Suicidal ideations; F15.10 Other stimulant abuse, uncomplicated; F25.9 Schizoaffective disorder, unspecified
CPT/HCPCS: 36415; 73590; 80048; 80307; 81001; 82550; 84703; 85025; 85652; 87076; 87116; 87186; 93005; 93010; 96372; 99285; G0480; J1885; 80320

== ENCOUNTER 2017-08-10 16:37 | Emergency (ER) | payer SELFPAY ==
[2017-08-10 16:54] VITALS: BP 111/48
== END 2017-08-10 23:50 | disposition left against medical advice (07) ==
LOC: ED 16:37
DX: F19.10 Other psychoactive substance abuse, uncomplicated (principal); Z53.21 Procedure and treatment not carried out due to patient leaving prior to being seen by health care provider

== ENCOUNTER 2020-06-09 11:51 | Emergency (ER) | payer MEDICAID ==
[2020-06-09] MEDS ORDERED: ONDANSETRON 4 MG/2 ML INJ IV ONE (12:17)
[2020-06-09] MEDS ORDERED: KETOROLAC 30 MG/1 ML INJ IV ONE (12:17)
[2020-06-09 12:22] VITALS: BP 129/86
--- NOTE | 2020-06-09 12:23 | Emergency Department Report ---
ED Abdominal Pain HPI - General Chief Complaint: Abdominal Pain Stated Complaint: ABD PAIN Time Seen by Provider: 06/09/20 11:59 Source: patient, EMS Mode of arrival: Stretcher Limitations: No Limitations - History of Present Illness Initial Comments: 50-year-old female with history of schizoaffective disorder, polysubstance abuse, colon cancer, presents to ED with right lower quadrant abdominal pain x1 month. Patient states last year she was diagnosed with colon cancer and had colon resection with colostomy placement. Patient reversal of her colostomy in March 2019. Patient states since her colostomy reversal surgery, she has been having pain in that area. Patient reports this right lower quadrant pain became worse 2 days ago. Patient states that she is currently admitted at [facility] for depression. She states that she was admitted there yesterday. Prior to admission to [facility], patient states she was seen at [facility] for medical clearance. Patient states she reported her abdominal pain while in the ER at [facility] yesterday, however it was not addressed. EMS reports patient is under voluntary admission. Patient's paperwork from [facility] shows admitting diagnosis is "other stimulant dependence, uncomplicated." When questioned about this, patient denies that this is her reason for admission. When asked about drug use patient states, "Not that I am aware of. I was with someone and I was drinking." Patient denies any drug use. Patient also reporting pain to her left lower leg. States she believes it is due to MRSA. Patient states she has had a chronic wound present for several years and has be en on antibiotics multiple times for it. Patient states it is leaking pus. MD Complaint: abdominal pain -: month(s) (1) Location: RLQ Radiation: none Migration to: no migration Quality: aching Consistency: intermittent Improves With: nothing Worsens With: nothing Associated Symptoms: diarrhea. denies: nausea, vomiting, fever - Related Data Home Medications Medication Instructions Recorded Confirmed Last Taken hydrOXYzine PAMOATE [Vistaril] 100 mg PO BID 11/14/16 07/13/17 2 Weeks Ago ~06/29/17 risperiDONE [RisperDAL] 2 mg PO QHS 11/14/16 07/13/17 2 Weeks Ago ~06/29/17 Previous Rx's Medication Instructions Recorded Last Taken Type Sulfamethoxazole/Trimethoprim 1 each PO BID #14 tablet 11/16/16 2 Weeks Ago Rx [Bactrim DS TAB] ~06/29/17 Allergies Allergy/AdvReac Type Severity Reaction Status Date / Time egg AdvReac Itching Verified 07/14/17 08:45 ED Review of Systems ROS: Stated complaint: ABD PAIN Other details as noted in HPI Comment: All other systems reviewed and negative Constitutional: denies: fever Gastrointestinal: abdominal pain, diarrhea. denies: nausea, vomiting ED Past Medical Hx - Past Medical History Hx Heart Attack/AMI: Yes (pt stated) Hx Congestive Heart Failure: No Hx Diabetes: Yes (gestational) Hx Seizures: Yes Hx Psychiatric Treatment: Yes (depression / schizophrenia) Hx Asthma: No Additional medical history: High cholesterol, alcohol abuse - Surgical History Hx Coronary Stent: Yes (patient states) Hx Breast Surgery: Yes (breast augmentation) Additional Surgical History: left leg surgery, colostomy, then colostomy reversal. x 2 - Social History Smoking Status: Never Smoker Substance Use Type: Alcohol - Medications Home Medications: Home Medications Medication Instructions Recorded Confirmed Last Taken Type hydrOXYzine PAMOATE [Vistaril] 100 mg PO BID 11/14/16 07/13/17 2 Weeks Ago History ~06/29/17 risperiDONE [RisperDAL] 2 mg PO QHS 11/14/16 07/13/17 2 Weeks Ago History ~06/29/17 Sulfamethoxazole/Trimethoprim 1 each PO BID #14 tablet 11/16/16 07/13/17 2 Weeks Ago Rx [Bactrim DS TAB] ~06/29/17 ED Physical Exam - General Limitations: No Limitations General appearance: alert, in no apparent distress - Head Head exam: Present: atraumatic, normocephalic - Eye Eye exam: Present: normal appearance, EOMI - ENT ENT exam: Present: mucous membranes moist - Neck Neck exam: Present: normal inspection - Respiratory Respiratory exam: Present: normal lung sounds bilaterally. Absent: respiratory distress - Cardiovascular Cardiovascular Exam: Present: regular rate, normal rhythm - GI/Abdominal GI/Abdominal exam: Present: soft, tenderness (Mild right lower quadrant tenderness), other (Scars present on abdomen). Absent: distended - Extremities Exam Extremities exam: Present: other (Small healing wound on left lower leg, able to express a small amount of purulent discharge from the area) - Neurological Exam Neurological exam: Present: alert, oriented X3 - Psychiatric Psychiatric exam: Present: normal affect, normal mood - Skin Skin exam: Present: warm, dry, intact, normal color ED Course Vital Signs 06/09/20 12:16 Temperature 97.7 F Pulse Rate 83 Respiratory 13 Rate Blood Pressure 129/86 [Right] O2 Sat by Pulse 100 Oximetry - Reevaluation(s) Reevaluation #1: 06/09/20 13:[address] scan. ED Medical Decision Making - Lab Data Result diagrams: 06/09/20 12:24 06/09/20 12:24 - Medical Decision Making 50-year-old female presents to ED with abdominal pain since her surgery to remove colostomy bag 3 months ago. Vital signs are stable. Patient is currently at [facility]. Patient is not on a 1013 EMS reports she is a voluntary admission. Patient has a sitter at bedside from [facility]. Labs are normal. CT scan ordered to evaluate for bowel obstruction since patient has a history of multiple abdominal surgeries and colon cancer. Patient refusing CT. Advised patient that I am unable to fully evaluate her abdominal pain given her history without a CT scan. Patient still refuses and decided to sign out AMA. She has a normal mental status and full decisional capacity. Patient does not appear to be intoxicated at this time. She understands the risks of leaving AMA and has had opportunity to ask questions about her medical condition. Patient has been informed that she may return for care at any time and advised to follow-up with her surgeon. Critical care attestation.: If time is entered above; I have spent that time in minutes in the direct care of this critically ill patient, excluding procedure time. ED Disposition Clinical Impression: Abdominal pain Disposition: DC-07 LEFT AGAINST MED ADVICE Is pt being admited?: No Condition: Stable Instructions: Abdominal Pain (ED) Referrals: PRIMARY CARE, [Primary Care Provider] - 3-5 Days Forms: AMA Form Time of Disposition: 14:16
[2020-06-09 12:57] LABS: Blood Urea Nitrogen 11 mg/dL (7-17); Calcium 8.8 mg/dL (8.4-10.2); Hemolysis Index 11
[2020-06-09 12:59] LABS: Alanine Aminotransferase 16 units/L (7-56); Albumin 3.8 g/dL (3.9-5)
[2020-06-09 13:00] LABS: BUN/Creatinine Ratio 18; Bilirubin,Direct < 0.2 mg/dL (0-0.2)
[2020-06-09 13:04] LABS: Basophils % (Auto) 0.3 % (0.0-1.8); Eosinophils # (Auto) 0.2 K/mm3 (0.0-0.4); Hemoglobin 12.1 gm/dl (10.1-14.3); Lymphocytes % (Auto) 18.1 % (13.4-35.0); Mean Corpuscular HGB Conc 33 % (30-34); Mean Corpuscular Volume 89 fl (79-97); Monocytes # (Auto) 0.6 K/mm3 (0.0-0.8); Monocytes % (Auto) 10.5 % (0.0-7.3); Platelet Count 271 K/mm3 (140-440); Red Blood Count 4.14 M/mm3 (3.65-5.03); Red Cell Distribution Width 14.4 % (13.2-15.2)
== END 2020-06-09 14:13 | disposition left against medical advice (07) ==
LOC: ED 11:51
DX: R10.31 Right lower quadrant pain (principal); R19.7 Diarrhea, unspecified; E11.9 Type 2 diabetes mellitus without complications; R56.9 Unspecified convulsions; F20.9 Schizophrenia, unspecified; F32.9 Major depressive disorder, single episode, unspecified; Z98.890 Other specified postprocedural states; Z79.899 Other long term (current) drug therapy; Z91.012 Allergy to eggs
CPT/HCPCS: 36415; 80048; 80076; 84703; 85025; 96374; 96375; 99283; J1885; J2405

== ENCOUNTER 2020-08-08 17:21 | Emergency (ER) | payer MEDICAID | END 2020-08-08 21:00 | disposition left against medical advice (07) | LOC: ED 17:21 ==

== ENCOUNTER 2020-08-09 01:42 | Emergency (ER) | payer MEDICAID ==
[2020-08-09 03:16] VITALS: BP 125/79
[2020-08-09 03:55] LABS: Bilirubin,Urine NEG (Negative); Blood,Urine SM (Negative); Color,Urine Yellow (Yellow); Mucus,Urine 2+ /HPF; WBC,Urine > 182.0 /HPF (0.0-6.0)
[2020-08-09 04:01] LABS: Benzodiazepines Screen,Urine Negative; Cocaine Screen,Urine Negative; Methadone Screen,Urine Negative; Opiate Screen,Urine Negative
[2020-08-09 04:02] LABS: Basophils % (Auto) 0.5 % (0.0-1.8); Eosinophils # (Auto) 0.1 K/mm3 (0.0-0.4); Hematocrit 33.9 % (30.3-42.9); Hemoglobin 11.3 gm/dl (10.1-14.3); Lymphocytes # (Auto) 0.8 K/mm3 (1.2-5.4); Lymphocytes % (Auto) 10.1 % (13.4-35.0); Mean Corpuscular HGB Conc 34 % (30-34); Mean Corpuscular Volume 88 fl (79-97); Monocytes # (Auto) 0.8 K/mm3 (0.0-0.8); Monocytes % (Auto) 10.6 % (0.0-7.3); Platelet Count 319 K/mm3 (140-440); Red Blood Count 3.87 M/mm3 (3.65-5.03); Red Cell Distribution Width 16.9 % (13.2-15.2)
[2020-08-09 04:15] LABS: Amphetamine Screen,Urine Positive; Cannabinoid Screen,Urine Positive
[2020-08-09 04:23] LABS: Blood Urea Nitrogen 15 mg/dL (7-17); Hemolysis Index 1
[2020-08-09 04:27] LABS: BUN/Creatinine Ratio 21
== END 2020-08-09 08:50 | disposition left against medical advice (07) ==
LOC: ED 01:42
DX: R44.1 Visual hallucinations (principal); Z53.21 Procedure and treatment not carried out due to patient leaving prior to being seen by health care provider
CPT/HCPCS: 36415; 80048; 80307; 80320; 81001; 84703; 85025; G0480